=== PATIENT | female | born 1945 | race Caucasian/White ===

== ENCOUNTER → 2023-09-02 08:17 | Outpatient (REF) | payer MEDICARE, OTHER, SELFPAY ==
[2023-09-02 10:15] LABS: % Basophils 1.1 % (0-2); % Eosinophils 5.4 % (0-6); % Immature Granulocytes 0.3 % (0-0.5); % Lymphocytes 43.8 % (20.5-51.1); % Monocytes 11.4 % (1.7-9.3); Absolute Eosinophils 0.2 10^3/uL (0-0.7); Absolute Lymphocytes 1.6 10^3/uL (1.2-3.4); Absolute Monocytes 0.4 10^3/uL (0.1-0.6); Absolute Neutrophils 1.4 10^3/uL (1.4-6.5); Hematocrit 35.8 % (37.0-47.0); Hemoglobin 11.7 g/dL (12.0-16.0); Mean Corp Hgb Conc. 32.7 g/dL (33.0-37.0); Mean Corpuscular Hgb 30.1 pg (27.0-31.0); Mean Platelet Volume 10.7 fL (7.4-10.4); Nucleated Red Blood Cells % 0 %; Platelet Count 152 10^3/uL (130-400); Red Blood Cell Count 3.89 10^6/uL (4.20-5.40); Red Cell Dist. Width 14.9 % (11.5-14.5); White Blood Cell Count 3.7 10^3/uL (4.8-10.8)
[2023-09-02 10:23] LABS: ALT (SGPT) 21 U/L (0-35); AST (SGOT) 27 U/L (14-36); Albumin 3.8 g/dl (3.5-5.0); Alkaline Phosphatase 57 U/L (38-126); Blood Urea Nitrogen 16 mg/dl (7-17); Calcium 9.5 mg/dl (8.4-10.2); Carbon Dioxide 30 mmol/L (22-30); Chloride 104 mmol/L (98-107); Glucose 94 mg/dl (70-99); Potassium 3.9 mmol/L (3.5-5.1); Sodium 139 mmol/L (135-145); Total Bilirubin 0.7 mg/dl (0.2-1.3); Total Protein 6.3 g/dl (6.3-8.2); eGFR > 60.00
[2023-09-02 11:18] LABS: TSH Reflex To Free T4 1.03 uIU/ml (0.47-4.68)
== END ==
LOC: REG 08:17
PROVIDERS: ATTENDING PHYSICIAN Internal Medicine
DX: R93.89 Abnormal findings on diagnostic imaging of other specified body structures (principal); Z85.831 Personal history of malignant neoplasm of soft tissue; Z87.898 Personal history of other specified conditions; R29.898 Other symptoms and signs involving the musculoskeletal system; E03.9 Hypothyroidism, unspecified
CPT/HCPCS: 36415; 80053; 84443; 85025

== ENCOUNTER → 2023-09-12 16:03 | Outpatient (REF) | payer MEDICARE, OTHER, SELFPAY | LOC: RAD 16:03 | PROVIDERS: ATTENDING PHYSICIAN Internal Medicine | DX: R93.89 Abnormal findings on diagnostic imaging of other specified body structures (principal); Z85.831 Personal history of malignant neoplasm of soft tissue; Z87.898 Personal history of other specified conditions; R29.898 Other symptoms and signs involving the musculoskeletal system | CPT/HCPCS: 71250 ==

== ENCOUNTER → 2023-11-08 10:50 | Outpatient (REF) | payer MEDICARE, OTHER, SELFPAY ==
[2023-11-08 13:38] LABS: % Basophils 0.7 % (0-2); % Immature Granulocytes 0.3 % (0-0.5); % Lymphocytes 36.1 % (20.5-51.1); % Monocytes 9.3 % (1.7-9.3); % Neutrophils 50.6 % (42.2-75.2); Absolute Eosinophils 0.2 10^3/uL (0-0.7); Absolute Lymphocytes 2.2 10^3/uL (1.2-3.4); Absolute Monocytes 0.6 10^3/uL (0.1-0.6); Absolute Neutrophils 3.1 10^3/uL (1.4-6.5); Hematocrit 36.3 % (37.0-47.0); Hemoglobin 11.7 g/dL (12.0-16.0); Mean Corp Hgb Conc. 32.2 g/dL (33.0-37.0); Mean Corpuscular Hgb 29.2 pg (27.0-31.0); Mean Corpuscular Volume 90.5 fL (81.0-99.0); Mean Platelet Volume 9.7 fL (7.4-10.4); Nucleated Red Blood Cells % 0 %; Platelet Count 247 10^3/uL (130-400); Red Blood Cell Count 4.01 10^6/uL (4.20-5.40); Red Cell Dist. Width 14.7 % (11.5-14.5)
== END ==
LOC: REG 10:50
PROVIDERS: ATTENDING PHYSICIAN Internal Medicine; FAMILY PHYSICIAN Obstetrics & Gynecology Gynecology
DX: D64.9 Anemia, unspecified (principal); D72.819 Decreased white blood cell count, unspecified
CPT/HCPCS: 36415; 85025

== ENCOUNTER → 2023-12-06 13:00 | Outpatient (REF) | payer MEDICARE, OTHER, SELFPAY | LOC: REG 13:00 | PROVIDERS: ATTENDING PHYSICIAN Internal Medicine | DX: M77.8 Other enthesopathies, not elsewhere classified (principal) | CPT/HCPCS: 73030 ==

== ENCOUNTER → 2024-03-18 13:54 | Outpatient (REF) | payer MEDICARE, OTHER, SELFPAY ==
[2024-03-18 14:28] LABS: % Basophils 0.8 % (0-2); % Eosinophils 3.8 % (0-6); % Immature Granulocytes 0.2 % (0-0.5); % Lymphocytes 28.9 % (20.5-51.1); % Monocytes 13.7 % (1.7-9.3); % Neutrophils 52.6 % (42.2-75.2); Absolute Eosinophils 0.2 10^3/uL (0-0.7); Absolute Lymphocytes 1.5 10^3/uL (1.2-3.4); Absolute Monocytes 0.7 10^3/uL (0.1-0.6); Absolute Neutrophils 2.8 10^3/uL (1.4-6.5); Hematocrit 36.8 % (37.0-47.0); Hemoglobin 12.4 g/dL (12.0-16.0); Mean Corp Hgb Conc. 33.7 g/dL (33.0-37.0); Mean Corpuscular Volume 88.9 fL (81.0-99.0); Mean Platelet Volume 9.7 fL (7.4-10.4); Nucleated Red Blood Cells % 0 %; Platelet Count 206 10^3/uL (130-400); Red Blood Cell Count 4.14 10^6/uL (4.20-5.40); Red Cell Dist. Width 14.2 % (11.5-14.5); White Blood Cell Count 5.3 10^3/uL (4.8-10.8)
== END ==
LOC: REG 13:54
PROVIDERS: ATTENDING PHYSICIAN Internal Medicine
DX: D64.9 Anemia, unspecified (principal)
CPT/HCPCS: 36415; 85025

== ENCOUNTER → 2024-03-25 15:02 | Outpatient (REF) | payer MEDICARE, OTHER, SELFPAY | LOC: PAVMRI 15:02 | PROVIDERS: ATTENDING PHYSICIAN Internal Medicine | DX: M25.511 Pain in right shoulder (principal); G89.29 Other chronic pain | CPT/HCPCS: 73221 ==

== ENCOUNTER → 2024-04-22 16:39 | Outpatient (REF) | payer MEDICARE, OTHER, SELFPAY | LOC: WDC 16:39 | PROVIDERS: ATTENDING PHYSICIAN Obstetrics & Gynecology Gynecology; FAMILY PHYSICIAN Internal Medicine | DX: Z12.31 Encounter for screening mammogram for malignant neoplasm of breast (principal) | CPT/HCPCS: 77063; 77067 ==

== ENCOUNTER → 2024-08-19 14:46 | Outpatient (REF) | payer MEDICARE, OTHER, SELFPAY ==
[2024-08-19 15:51] LABS: % Basophils 0.6 % (0-2); % Eosinophils 0.9 % (0-6); % Immature Granulocytes 0.2 % (0-0.5); % Lymphocytes 30.3 % (20.5-51.1); % Monocytes 10.9 % (1.7-9.3); % Neutrophils 57.1 % (42.2-75.2); Absolute Eosinophils 0.1 10^3/uL (0-0.7); Absolute Monocytes 0.7 10^3/uL (0.1-0.6); Absolute Neutrophils 3.7 10^3/uL (1.4-6.5); Hematocrit 37.1 % (37.0-47.0); Hemoglobin 12.3 g/dL (12.0-16.0); Mean Corp Hgb Conc. 33.2 g/dL (33.0-37.0); Mean Corpuscular Hgb 29.7 pg (27.0-31.0); Mean Corpuscular Volume 89.6 fL (81.0-99.0); Nucleated Red Blood Cells % 0 %; Platelet Count 219 10^3/uL (130-400); Red Blood Cell Count 4.14 10^6/uL (4.20-5.40); White Blood Cell Count 6.4 10^3/uL (4.8-10.8)
[2024-08-19 16:06] LABS: ALT (SGPT) 19 U/L (0-35); AST (SGOT) 25 U/L (14-36); Albumin 4.3 g/dl (3.5-5.0); Alkaline Phosphatase 54 U/L (38-126); Amylase 54 U/L (30-110); Blood Urea Nitrogen 20 mg/dl (7-17); Calcium 9.3 mg/dl (8.4-10.2); Carbon Dioxide 30 mmol/L (22-30); Chloride 103 mmol/L (98-107); Glucose 79 mg/dl (70-99); Lipase 118 U/L (23-300); Potassium 3.9 mmol/L (3.5-5.1); Sodium 139 mmol/L (135-145); Total Bilirubin 0.4 mg/dl (0.2-1.3); eGFR > 60.00
== END ==
LOC: REG 14:46
PROVIDERS: ATTENDING PHYSICIAN Internal Medicine
DX: R11.0 Nausea (principal); R14.2 Eructation; K58.1 Irritable bowel syndrome with constipation
CPT/HCPCS: 36415; 80053; 82150; 83690; 85025

== ENCOUNTER → 2024-12-18 13:55 | Outpatient (REF) | payer MEDICARE, OTHER, SELFPAY ==
[2024-12-18 15:33] LABS: Free T4 1.28 ng/dl (0.78-2.19)
[2024-12-18 15:47] LABS: TSH 0.74 uIU/ml (0.47-4.68)
== END ==
LOC: REG 13:55
PROVIDERS: ATTENDING PHYSICIAN Internal Medicine
DX: E03.9 Hypothyroidism, unspecified (principal); Z85.831 Personal history of malignant neoplasm of soft tissue; M81.0 Age-related osteoporosis without current pathological fracture; E55.9 Vitamin D deficiency, unspecified; M25.561 Pain in right knee; M19.90 Unspecified osteoarthritis, unspecified site; Z00.00 Encounter for general adult medical examination without abnormal findings
CPT/HCPCS: 36415; 84439; 84443

== ENCOUNTER → 2024-12-31 15:46 | Outpatient (REF) | payer MEDICARE, OTHER, SELFPAY ==
[2024-12-31 17:28] LABS: % Basophils 0.2 % (0-2); % Eosinophils 2.4 % (0-6); % Immature Granulocytes 0.2 % (0-0.5); % Lymphocytes 40.4 % (20.5-51.1); % Monocytes 10.6 % (1.7-9.3); % Neutrophils 46.2 % (42.2-75.2); Absolute Eosinophils 0.1 10^3/uL (0-0.7); Absolute Lymphocytes 2.2 10^3/uL (1.2-3.4); Absolute Monocytes 0.6 10^3/uL (0.1-0.6); Absolute Neutrophils 2.5 10^3/uL (1.4-6.5); Hematocrit 37.4 % (37.0-47.0); Hemoglobin 12.4 g/dL (12.0-16.0); Mean Corp Hgb Conc. 33.2 g/dL (33.0-37.0); Mean Corpuscular Hgb 29.8 pg (27.0-31.0); Mean Corpuscular Volume 89.9 fL (81.0-99.0); Mean Platelet Volume 10.2 fL (7.4-10.4); Nucleated Red Blood Cells % 0 %; Platelet Count 167 10^3/uL (130-400); Red Blood Cell Count 4.16 10^6/uL (4.20-5.40); Red Cell Dist. Width 14.1 % (11.5-14.5); White Blood Cell Count 5.5 10^3/uL (4.8-10.8)
[2024-12-31 17:54] LABS: ALT (SGPT) 27 U/L (0-35); AST (SGOT) 27 U/L (14-36); Albumin 4.8 g/dl (3.5-5.0); Alkaline Phosphatase 56 U/L (38-126); Blood Urea Nitrogen 17 mg/dl (7-17); Calcium 9.8 mg/dl (8.4-10.2); Carbon Dioxide 26 mmol/L (22-30); Chloride 103 mmol/L (98-107); Glucose 91 mg/dl (70-99); Sodium 139 mmol/L (135-145); Total Bilirubin 0.5 mg/dl (0.2-1.3); Total Protein 7.5 g/dl (6.3-8.2); eGFR > 60.00
[2024-12-31 17:59] LABS: Erythrocyte Sed Rate 56 mm/hour (0-20)
[2025-01-02 16:08] LABS: Lyme Antibody Screen, EIA Negative (Negative)
[2025-01-03 00:08] LABS: ANA, IgG Reflex to HEp-2 None Detected (None Detected)
== END ==
LOC: REG 15:46
PROVIDERS: ATTENDING PHYSICIAN Orthopaedic Surgery Hand Surgery; FAMILY PHYSICIAN Internal Medicine
DX: M66.241 Spontaneous rupture of extensor tendons, right hand (principal); M25.50 Pain in unspecified joint
CPT/HCPCS: 36415; 80053; 85025; 85652; 86038; 86140; 86225; 86235; 86430; 86618

== ENCOUNTER 2025-02-07 15:54 | Inpatient (IN) | payer MEDICARE, OTHER, SELFPAY ==
[2025-02-07 11:53] VITALS: BP 95/58
[2025-02-07] MEDS: ZOFRAN 4 MG IV (13:06)
[2025-02-07] MEDS: TORADOL 15 MG IV (13:06)
[2025-02-07] MEDS: NSS 1000 IV ×2 (13:07→20:34)
--- NOTE | 2025-02-07 13:25 | ED.GENMED ---
History of Present Illness
General
Chief Complaint: Weakness
Source: patient
Exam Limitations: none
Time Seen by Provider: 02/07/25 12:20
Nursing documentation reviewed up to this point in time: agreed with
History of Present Illness
History of Present Illness:
79-year-old female with a past medical history of hypothyroidism, distant history of a thigh sarcoma in remission who presents to the emergency room with her daughter for evaluation of multiple complaints in the setting of positive flu test.
Patient reports that she started feeling unwell on Monday and her symptoms have been persistent since that time. She says she has had severe fatigue, poor appetite, myalgias and nausea. She has developed a mild cough. Although she has had nausea
she has not had any vomiting. She has not had any abdominal pain. No chest pain or shortness of breath. She denies any headache or neck pain. She has not had a fever. She had a flu test yesterday that was positive for influenza B. She
discussed with her primary doctor (Dr. Hobson) and was prescribed Tamiflu. She took a dose last night as well as this morning however she feels nausea is a bit worse and today was having some loose stools which prompted her to come to the ER for
evaluation.
Review of Systems
Review of Systems
All Other Systems: ROS reviewed and negative except as documented in HPI and ROS
Constitutional: Reports fatigue; Denies fever or chills
EENT: Denies sore throat or runny nose
Respiratory: Reports cough; Denies trouble breathing
Cardiac: Denies chest pain
ABD/GI: Reports nausea and diarrhea; Denies abdominal pain or vomiting
: Denies flank pain
Musculoskeletal: Reports muscle pain; Denies neck pain or back pain
Neurological: Denies headache
Phy Exam
Physical Exam
Physical Exam:
General: Awake, alert, oriented x3; no acute distress
Head: Normocephalic, atraumatic
Eyes: Conjunctiva normal, sclera anicteric
Throat: Airway intact, slightly dry mucous membranes
Neck: Trachea midline, supple without meningismus
Lungs: Clear to auscultation bilaterally, no wheezing, rales, rhonchi
Heart: Mild tachycardia with regular rhythm, no murmurs, gallops, or rubs
Abd: Soft, non distended, nontender
Neuro: No gross deficits
Skin: no rash
Extremities: Warm and well-perfused
Scores
Heart Failure Risk
Heart Failure Risk Score: Not Applicable
Heart Score for Chest Pain Patients
STEMI patient?: Not applicable
Withdrawal Assessment of Alcohol
Withdrawal Assessment Completed?: Not applicable
Course
Orders/Labs/Results
Orders:
Orders
02/07/25 12:47
CR Chest - 2 Views Urgent
Comment:
Reason For Exam: weakness, flu+
02/07/25 12:59
0.9% Sodium Chloride 1000 ml [Nss] 1,000 ml IV BOLUS
Ketorolac [Toradol] 15 mg IV NOW STA
Ondansetron Injectable [Zofran] 4 mg IV NOW STA
02/07/25 13:06
CPK [Creatine Phosphokinase] Urgent
Complete Blood Count/With Diff Urgent
Comprehensive Metabolic Panel Urgent
02/07/25 13:59
COVID-19 Antigen Urgent
Source: Nasal Swab
Osmolality, Random Urine Urgent
Urinalysis Reflex To Culture Urgent
Urine Sodium Urgent
Influenza A+B Rapid Molecular Urgent
MYRNA Source: Nasal Swab
Specimen Description:
Abnormal Lab Results
02/07/25
13:06
WBC 2.4 L* 10^3/uL
(4.8-10.8)
RBC 4.06 L 10^6/uL
(4.20-5.40)
Hct 34.1 L %
(37.0-47.0)
Plt Count 33 L 10^3/uL
(130-400)
MPV 11.3 H fL
(7.4-10.4)
Absolute Lymphs (auto) 0.3 L 10^3/uL
(1.2-3.4)
Neutrophils % 82.2 H %
(42.2-75.2)
Lymphocytes % 10.8 L %
(20.5-51.1)
Sodium 124 L mmol/L
(135-145)
Carbon Dioxide 19 L mmol/L
(22-30)
BUN 18 H mg/dl
(7-17)
Glucose 121 H mg/dl
(70-99)
Calcium 8.3 L mg/dl
(8.4-10.2)
AST 49 H U/L
(14-36)
Creatine Kinase 264 H U/L
(30-135)
02/07/25 13:06
02/07/25 13:06
Vital Signs
Initial and Last Documented VS:
Initial Vital Signs
Temp Pulse Resp BP Pulse Ox
37.7 C 108 16 95/58 95
02/07/25 11:53 02/07/25 11:53 02/07/25 11:53 02/07/25 11:53 02/07/25 11:53
Last Documented Vital Signs
Temp Pulse Resp BP Pulse Ox
37.7 C 108 16 95/58 95
02/07/25 11:53 02/07/25 11:53 02/07/25 11:53 02/07/25 11:53 02/07/25 13:31
MDM/Problems Addressed
Differential Diagnosis Includes:
Influenza symptoms, medication side effect (Tamiflu), pneumonia, rhabdomyolysis, electrolyte derangement
MDM/Problems Addressed:
79-year-old female presents for evaluation of multiple complaints in the setting of positive flu test. Patient has had fatigue, poor appetite, myalgias, nausea; today had some loose stools and worsening nausea after starting Tamiflu last night.
She is mildly tachycardic, soft blood pressure. She does appear to be mildly dehydrated. Physical exam is as above. Will plan to place an IV and send labs including a CBC and a CMP, CPK. Will check chest x-ray to rule out pneumonia although
lower suspicion with only mild cough and with normal respiratory rate, normal pulse ox, clear lungs. Will provide fluids, antiemetic, Toradol. I had a long discussion with the patient�I think at this point with symptoms since Monday she is
outside the window of benefit for Tamiflu having started last night and I advised her to discontinue this as I think the side effects outweigh any benefit she might obtain from the medicine.
Labs reviewed�patient has marked leukopenia and thrombocytopenia�no neutropenia, no anemia. CMP shows hyponatremia to 124 suspect likely hypovolemic but added urine studies. She has nongap metabolic acidosis likely from GI losses. Marginal
elevation of the CPK. Chest x-ray shows no pneumonia on my independent review. Will plan to admit for continued management of acute hyponatremia and pancytopenia in the setting of influenza infection. Case discussed with hospitalist.
*Radiology
Radiology exam reviewed: preliminary read by ED provider
*Pulse Oximetry
SaO2: 95
Patient hypoxic: no (95%)
*Critical Care Note
Total Time (30-74mins, 75-104mins- exclusive of procedures): Not Applicable
Data Reviewed
Review of Other/Old Records Reveals: Labs and Records
Source: patient, records and family
ED Attending Note
-
Portions of this chart may have been created with voice recognition software.� Occasional wrong word or��sound alike� substitutions may have occurred due to the inherent limitations of voice recognition software.
Discharge Plan
Departure
Patient Disposition: Admit
Date of Disposition: 02/07/25
Time of Disposition: 14:06
Admit to doctor: Blessing
Presentation/result/management discussed w/ accepting MD/DO: Hospitalist
Discharge Problem:
Acute hyponatremia, Pancytopenia, Influenza
Referrals:
Denver Hobson MD [Family Provider, Internal Medicine]
Interventions
Interventions:
*Risk Screen - Suicide Last Done: 02/07/25 11:53
*General Assessment Last Done: 02/07/25 11:53
*Neglect/Abuse Screening Last Done: 02/07/25 11:53
ED- Cardiac Assessment Last Done: 02/07/25 12:25
ED- Neurological Assessment Last Done: 02/07/25 12:25
ED- Pulmonary Assessment Last Done: 02/07/25 12:25
Discharge Date and Time
Print Language: HEBREW
[2025-02-07 13:26] LABS: Hematocrit 34.1 % (37.0-47.0); Hemoglobin 12.2 g/dL (12.0-16.0); Mean Corp Hgb Conc. 35.8 g/dL (33.0-37.0); Mean Corpuscular Volume 84.0 fL (81.0-99.0); Red Cell Dist. Width 13.7 % (11.5-14.5)
[2025-02-07 13:50] LABS: ALT (SGPT) 27 U/L (0-35); AST (SGOT) 49 U/L (14-36); Albumin 3.8 g/dl (3.5-5.0); Alkaline Phosphatase 41 U/L (38-126); Blood Urea Nitrogen 18 mg/dl (7-17); Calcium 8.3 mg/dl (8.4-10.2); Carbon Dioxide 19 mmol/L (22-30); Chloride 99 mmol/L (98-107); Glucose 121 mg/dl (70-99); Potassium 4.2 mmol/L (3.5-5.1); Sodium 124 mmol/L (135-145); Total Protein 6.5 g/dl (6.3-8.2); eGFR > 60.00
[2025-02-07 13:51] LABS: Nucleated Red Blood Cells % 0 %; Platelet Count 33 10^3/uL (130-400)
--- NOTE | 2025-02-07 14:28 | HPS.HSE ---
Family Physician
-
Family Physician: Denver Hobson
Chief Complaint
-
Nausea and muscle aches for a few days duration, tested positive for influenza by home testing kit
History of Present Illness
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 Patient reported that her symptoms started 4 days ago. She noticed chills and aches but no respiratory or cold-like symptoms.
She tested herself for influenza came back positive. She called her primary was put on Tamiflu but she took only 2 doses. She continued to have nausea and lack of appetite. Patient is unable to recall which started first that makes her the
nausea, she reported they were simultaneous events. In the emergency room, she had low sodium around 124. No history of hyponatremia in the past. No nausea or vomiting but she had diarrhea after taking Tamiflu. She also was noticed to have
leukopenia with thrombocytopenia. No bleeding events or skin rash. No history of thrombocytopenia in the past.
Medical History
Past Medical History
Past Medical History: Reports Other (Right thigh sarcoma status postchemotherapy resection, remission for years. History of hypothyroidism)
Past Surgical History: Reports Other (No recent major surgery)
Social History
Tobacco: Former Smoker
Alcohol: Occasional
Drug: None
Employment: Retired
Family History
Family History: Not pertinent
Allergies / Home Medications
Allergies reflects when Allergies were last updated in [facility].
Home Medications with original date entered in [facility]
Allergy/Medication List:
Allergies
Allergy/AdvReac Type Severity Reaction Status Date / Time
No Known Allergies Allergy Verified 02/07/25 11:53
Home Medications
levothyroxine 50 mcg tablet (Synthroid) 50 mcg PO DAILY 02/07/25
oseltamivir 75 mg capsule (Tamiflu) 75 mg PO BID 02/07/25
Review of Systems
-
History Source: Patient
A 12 point ROS was completed and negative except as noted: Yes
Constitutional: Reports Fatigue and Chills; Denies Fever
EENT: Denies Sore Throat, Mouth Swelling or Runny Nose
Respiratory: Denies Cough or Trouble Breathing
Cardiac: Denies Chest Pain or Palpitations
Abdomen/GI: Reports Nausea and Anorexia; Denies Abdominal Pain
: Denies Dysuria or Bleeding
Musculoskeletal: Reports Muscle Pain; Denies Joint Pain
Neurological: Denies Numbness
Endocrine: Denies Temp Intolerance
Hematologic/Lymphatic: Denies Bruising
Psych: Denies Panic Disorder
Physical Exam
Vital Signs
Vital Signs
Temp Pulse Resp BP Pulse Ox
99.9 F 108 16 95/58 95
02/07/25 11:53 02/07/25 11:53 02/07/25 11:53 02/07/25 11:53 02/07/25 13:31
Physical Exam
General: No Apparent Distress and Comfortable
HEENT: Moist mucous membranes and Atraumatic
Respiratory: Clear
Cardiac: S1/S2 and Regular Rhythm
GI: Soft, Non Tender and Non Distended
Genito-urinary: No Merritt
Musculoskeletal: No Clubbing, No Cyanosis and No Edema
Skin: No Jaundice
Neuro: AO x 3 and Nonfocal/grossly intact
Psych: Calm and Intact Judgment/Insight
Laboratory Results
-
02/07/25 13:06
02/07/25 13:06
Laboratory Results
Total Bilirubin 0.6 mg/dl (0.2-1.3) 02/07/25 13:06
AST 49 U/L (14-36) H 02/07/25 13:06
ALT 27 U/L (0-35) 02/07/25 13:06
Alkaline Phosphatase 41 U/L (38-126) 02/07/25 13:06
Impression/Plan
-
79 years old female presented with nonspecific symptoms of malaise, aches, anorexia and nausea was found to have hyponatremia and thrombocytopenia
# Hyponatremia
Admit the patient to the hospital
Will start the patient on normal saline
This could be hypovolemic hyponatremia or others
Chest x-ray, no acute findings
Check serum and urine osmolality, urine sodium, uric acid
She is not on diuretic treatment. No history of vomiting by history of poor oral intake and diarrhea.
Mentation is normal and fully oriented, denies headache or confusion
follow-up with nephrology recommendation.
# Nausea, could be induced by recent viral illness or hyponatremia
We will give Zofran as needed
# Mild elevation in creatinine kinase, likely from recent viral illness
Nontraumatic mild rhabdomyolysis
Continue with IV fluid
Tylenol for muscle pain
# Thrombocytopenia with leukopenia
Recent history of influenza. She tested negative for influenza and COVID in the hospital. No respiratory symptoms. Chest x-ray no infiltrate. No hypoxia
Could be acute induced by viral illness. No ecchymosis or bruising. No bleeding. She has not started any new medications.
Will monitor platelet count, check blood smear
Will monitor to rule out ITP.
Will do blood culture
Follow-up with hematology recommended
# Hypothyroidism, check TSH
# History of positive influenza screen at home
Patient does not have respiratory symptoms.
Negative influenza and COVID.
Will hold off on Tamiflu therapy
Total time spent to see the patient, examine the patient, review data and lab result, discuss treatment plan with patient, ER doctor, nursing staff around 75 minutes
[2025-02-07 14:39] LABS: COVID-19 Antigen Negative (Negative)
[2025-02-07 14:48] VITALS: BP 102/70
--- NOTE | 2025-02-07 15:49 | CM ---
CM reviewed chart and met with pt bedside in ED. Lives alone, multistory home, [address] through garage first floor half BA, second floor BR/Full BA. Independent in ADLs, personal care and ambulation at baseline. No DME.
No hx VN/SNF.
PCP: Denver Hobson
Pharmacy: [facility]
CM will continue to follow for discharge planing needs.
--- NOTE | 2025-02-07 17:14 | W.CON.NEPH ---
Consultation
-
Date/Time Consultation Requested: 02/07/25 1524
Date/Time Consultation Performed: 02/07/25 1745
Requesting Provider: abby Lemus
Performing Provider: Tessa Hidalgo
Reason for Consultation: Hyponatremia
Medical History
-
Chief Complaint: nausea, Flu+ve at home
History of Present Illness:
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 She noticed chills
and aches but no respiratory or cold-like symptoms. She tested herself for influenza came back positive. PCP gave her Tamiflu but she took only 2 doses. She could not continue to take with nausea and lack of appetite. She has XIE which improved
now. Has noted balance issues when walking at home. In the emergency room, she had low sodium around 124, BP are soft and had 1lit of NS in ER. No history of hyponatremia in the past. No nausea or vomiting but she had diarrhea after taking
Tamiflu. She also was noticed to have leukopenia 2.4 with thrombocytopenia 33 . No bleeding events or skin rash. No history of thrombocytopenia in the past. She completed 1lit of NS. Reports her BP chronically on low end. No dizziness.
Past Medical History
Right thigh sarcoma status postchemotherapy resection, remission for years. History of hypothyroidism
Social History
Tobacco: Former Smoker
Alcohol: Occasional
Drug: None
Employment: Retired (nurse)
Family History
Family History: Not Pertinent
Allergies / Home Medications
Allergy/AdvReac Type Severity Reaction Status Date / Time
No Known Allergies Allergy Verified 02/07/25 11:53
�Medication �Instructions �Recorded �Confirmed �Type
levothyroxine 50 mcg tablet 50 mcg PO DAILY 02/07/25 02/07/25 History
(Synthroid)
oseltamivir 75 mg capsule (Tamiflu) 75 mg PO BID 02/07/25 02/07/25 History
Review of Systems
-
All other systems: Negative unless noted
Physical Exam
Vital Signs
Vital Signs
Temp Pulse Resp BP Pulse Ox
99.9 F 98 20 102/70 99
02/07/25 11:53 02/07/25 14:48 02/07/25 14:48 02/07/25 14:48 02/07/25 14:48
Lab Results
WBC 2.4 10^3/uL (4.8-10.8) L* 02/07/25 13:06
RBC 4.06 10^6/uL (4.20-5.40) L 02/07/25 13:06
Hgb 12.2 g/dL (12.0-16.0) 02/07/25 13:06
Hct 34.1 % (37.0-47.0) L 02/07/25 13:06
Plt Count 33 10^3/uL (130-400) L 02/07/25 13:06
Sodium 124 mmol/L (135-145) L 02/07/25 13:06
Potassium 4.2 mmol/L (3.5-5.1) 02/07/25 13:06
Chloride 99 mmol/L (98-107) 02/07/25 13:06
Carbon Dioxide 19 mmol/L (22-30) L 02/07/25 13:06
BUN 18 mg/dl (7-17) H 02/07/25 13:06
Creatinine 0.8 mg/dL (0.6-1.0) 02/07/25 13:06
eGFR > 60.00 02/07/25 13:06
Glucose 121 mg/dl (70-99) H 02/07/25 13:06
Calcium 8.3 mg/dl (8.4-10.2) L 02/07/25 13:06
Albumin 3.8 g/dl (3.5-5.0) 02/07/25 13:06
Physical Exam
General: Awake, Alert, Oriented, AOx3, No Distress and Nontoxic
HEENT: Anicteric, Conjunctivae Clear, Ear/Nose Intact, Dentition Intact and Facial Symmetry
Respiratory: Clear, Normal Excursion and Nonlabored Respirations
Cardiac: S1/S2 and Regular Rate/Rhythm
Breast: Deferred by me
Abdomen: Soft, Nontender and Nondistended
Musculoskeletal: No Cyanosis and No Edema
Skin: No Rash
Neuro: Nonfocal/Grossly Intact
Psych: Mood/afflect pleasant, Insight/judgement good and Appropriate
Data Reviewed
-
Radiology: Report Reviewed by me and Discussed with Patient
Labs: Labs Reviewed by me and Discussed with Patient
Assessment/Plan
-
IMP:
Hyponatremia
Nausea
Mildly elevated CK
Thrombocytopenia with leukopenia
Recent history of influenza tested negative for influenza and COVID in the hospital
Hypothyroidism
Hypocalcemia
Plan:
A/w gen symp of nausea, malaise, anorexia
possible symptomatic hyponatremia-could be hypovolemia
check U osmo, U na
now that she got 1lit of NS-recheck labs
ok for isotonic fluids if sodium worsens change to HTS
check TSH and cortisol
fluid restrict 48 ounces/day
Bp chronically soft
hypocalcemia-check vit D evel, I araceli -start po araceli
d/w pt
[2025-02-07 18:42] LABS: Blood Urea Nitrogen 19 mg/dl (7-17); Calcium 7.5 mg/dl (8.4-10.2); Carbon Dioxide 20 mmol/L (22-30); Chloride 102 mmol/L (98-107); Glucose 99 mg/dl (70-99); Potassium 3.9 mmol/L (3.5-5.1); Sodium 125 mmol/L (135-145); eGFR > 60.00
--- NOTE | 2025-02-07 20:00 | PTCARENOTE ---
patient arrived from ED, via stretcher. Out of stretcher to bed with stand by assistance, no devices. BP soft yet, according to patient, she runs on the softer side. Afebrile on arrival. Patient denies pain. Patient complaining of poor appetite.
Tremulous on assessment. Patient denies dizziness. Urine obtained. Blood cultures obtained. Skin check completed. Patient's skin is clean, dry and intact. Patient oriented to room. Bed in lowest position. Call juarez and personal belongings within
reach.
[2025-02-07 20:25] VITALS: BP 94/61; BMI 20.9
[2025-02-07 20:34] LABS: Hepatitis C Antibody Negative (Negative)
[2025-02-07] MEDS: OSCAL CAL 500 500 MG PO (20:34)
[2025-02-07 22:29] LABS: Urine Character Slightly Cloudy (Clear)
[2025-02-07 23:30] VITALS: BP 98/56
[2025-02-07] MEDS: TYLENOL 1000 MG PO (23:32)
[2025-02-08] VITALS (7 sets, daily range): BP systolic 78–99; BP diastolic 44–60
--- NOTE | 2025-02-08 00:28 | PTCARENOTE ---
Patient febrile with temp of 102.8 at 2305. PRN tylenol administered and effective AEB afebrile temp of 99 at 0015
[2025-02-08 06:55] LABS: Hematocrit 31.6 % (37.0-47.0); Hemoglobin 11.0 g/dL (12.0-16.0); Mean Corp Hgb Conc. 34.8 g/dL (33.0-37.0); Mean Corpuscular Volume 85.4 fL (81.0-99.0); Platelet Count 31 10^3/uL (130-400); Red Cell Dist. Width 13.8 % (11.5-14.5)
[2025-02-08 07:07] LABS: Blood Urea Nitrogen 18 mg/dl (7-17); Calcium 8.3 mg/dl (8.4-10.2); Carbon Dioxide 21 mmol/L (22-30); Chloride 103 mmol/L (98-107); Estimated Creatinine Clearance 52 ml/min; Glucose 92 mg/dl (70-99); Potassium 4.0 mmol/L (3.5-5.1); Sodium 128 mmol/L (135-145); eGFR > 60.00
[2025-02-08 07:30] LABS: Vitamin D, 25-OH*** 42.8 ng/mL (30-80)
[2025-02-08 07:33] LABS: Cortisol, Random 20.8 ug/dl; TSH 1.54 uIU/ml (0.47-4.68)
--- NOTE | 2025-02-08 08:02 | W.PN.HOSP.TC ---
Addendum entered and electronically signed by Angelique Thompson MD 02/08/25 17:42:
Addendum
Patient is having low-grade temperature with hypotension. Discussed with daughter, Odalis who is a physician. Patient baseline blood pressure can be low at times around 90. Will give bolus of IV fluid and 1 dose of midodrine. Added intravenous
Rocephin since we obtained cultures and blood testing. Will add heart monitor since BP is low.
Will update Dr. Mcgill.
End
Original Note:
Today's Communication/Plan
-
.
Assessment / Plan
Assessment / Plan
Physical Exam
General: No Apparent Distress and Comfortable
HEENT: Moist mucous membranes and Atraumatic
Respiratory: Clear
Cardiac: S1/S2 and Regular Rhythm
GI: Soft, Non Tender and Non Distended
Genito-urinary: No Merritt
Musculoskeletal: No Clubbing, No Cyanosis and No Edema
Skin: No Jaundice, no bruising
Neuro: AO x 3 and Nonfocal/grossly intact
Psych: Calm and Intact Judgment/Insight
79 years old female presented with nonspecific symptoms of malaise, aches, anorexia and nausea was found to have hyponatremia and thrombocytopenia
# Hyponatremia
Improving
Low serum osmolality, normal urine osmolality, low urine sodium
Sodium improving
c/w fluid restrictions, low infusion NS
Appreciate nephrology recommendation.
# Nausea, could be induced by recent viral illness or hyponatremia
No abdominal pain or tenderness
c/w Zofran as needed
# Mild elevation in creatinine kinase, likely from recent viral illness
Nontraumatic mild rhabdomyolysis
Continue with IV fluid
Tylenol for muscle pain
# Thrombocytopenia, mild anemia with leukopenia
Pancytopenia, could be due to infection.
Recent history of influenza. She tested negative for influenza and COVID in the hospital. No respiratory symptoms. Chest x-ray no infiltrate. No hypoxia
No ecchymosis or bruising. No bleeding. She has not started any new medications.
Will monitor platelet count, check blood smear
Will monitor to rule out ITP.
f/w blood culture
Appreciate hematology recommendations.
# Hypothyroidism,
Normal TSH
# History of positive influenza screen at home
fevers
f/w blood culture
Patient does not have respiratory symptoms.
Negative influenza and COVID.
Will hold off on Tamiflu therapy
Infectious panel is sent
Appreciate ID help
Total time spent to see the patient, examine the patient, review data and lab result, discuss treatment plan with patient, nursing staff around 55 minutes
Anticipated Discharge: > 48 hours
Subjective/Interval History
-
Date of Service: February 08, 2025
No chest pain
No abdominal pain
She slept well
Objective Data
-
Labs:
Laboratory Results
02/08/25
06:26
WBC 1.9 L*
Hgb 11.0 L
Hct 31.6 L
Plt Count 31 L
Sodium 128 L
Potassium 4.0
Chloride 103
Carbon Dioxide 21 L
BUN 18 H
Creatinine 0.7
Glucose 92
Calcium 8.3 L
Vital Signs:
Vital Signs
Temp Pulse Resp BP Pulse Ox
99 F 81 14 98/56 94
02/08/25 00:46 02/07/25 23:30 02/07/25 23:30 02/07/25 23:30 02/07/25 23:30
I&O
02/07/25 02/08/25 02/09/25
06:59 06:59 06:59
Intake Total 532 / 532 100 / 100
Output Total 400 / 400
Balance 132 / 132 100 / 100
--- NOTE | 2025-02-08 08:18 | CON.ID ---
Consultation
-
Date/Time Consultation Requested: February 08, 2025 0652
Date/Time Consultation Performed: February 08, 2025 0820
Requesting Provider: Dr. Sonia Thompson
Performing Provider: Dr. Luly Mcgill
Reason for Consultation: Fever
Chief Complaint / Past History
Chief Complaint
Malaise and myalgia
History of Present Illness
79-year-old female with remote history of right thigh sarcoma currently on remission who presented to the hospital February 07 due to myalgias chills and fever. Patient states she started feeling unwell approximately 5 to 6 days ago with bodyaches
chills, subjective fever, and joint pains. Positive headache, poor appetite and profound weakness. She self tested herself with COVID/influenza combination kit at home in the flu B was positive. Her PCP called in Tamiflu for which she took 2
doses but developed nausea. In the ER temperature 102.8. White count 2.4. Platelets 33 decreased from 167 on December 31, 2024. COVID-negative. Influenza A/B negative. ED ordered Lyme screen pending, monoscreen negative. Babesia smear negative.
She denies ill contacts. Last travel was to [facility] about a month ago. Has mild cough. No abdominal pain or diarrhea. No urine symptoms. No flank pain. No rash. She has chronic knee pain. No known tick exposure that she is aware of.
She lives in [place]. She does not take care of the yard/lawn. She has 2 cats who go outdoors.
Past History
Additional Past Medical History:
Hx Right thigh sarcoma status postchemotherapy resection
Allergy History:
No Known Allergies Allergy (Verified 02/07/25 11:53)
Medications Reviewed: Yes
Current Antibiotics:
none
Social History
Tobacco: Former Smoker
Alcohol: Occasional
Drug: None
Employment: Retired (nurse)
Family History
Family History: Not Pertinent
Review of Systems
Review of Systems
General: Fever, Chills and Change in Appetite
HEENT: Headache; Negative Sinus Problems or Pharyngitis
Cardiovascular: Negative Chest Pain
Respiratory: Cough; Negative Dyspnea or Sputum Production
Gasteroenterology: Nausea; Negative Vomiting or Diarrhea
Genital / Urological: Negative Dysuria or Flank Pain
Endocrine: Weakness and Fatigue
Musculoskeletal: Arthralgias and Myalgias
Neurological: Negative Dizziness
All systems: All other systems were reviewed and were negative
Vital Signs
Temp Pulse Resp BP Pulse Ox
99 F 81 14 98/56 94
02/08/25 00:46 02/07/25 23:30 02/07/25 23:30 02/07/25 23:30 02/07/25 23:30
Selected Entries
02/07/25
23:30
Temp 102.8 F H
Physical Exam
Physical Exam
Constitutional: No Acute Distress
Head: Other (No frontal or max or sinus tenderness)
Eyes: No Conjunctival Hemorrhage and Sclera Anicteric
Cardiovascular: Regular Rate and S1/S2
Pulmonary: Clear
Gastrointestinal: Soft, Non Tender, Non Distended and Normal Bowel Sounds
Genito-Urinary: Negative CVA Tenderness
Extremities: Negative Edema
Musculoskeletal: Negative Joint Swelling (knees), Joint Effusion (knees) or Spinal Tenderness
Neurological: AO x 3
Lab / Diagnostic Study Results
02/08/25 06:26
02/08/25 06:26
Abs Immat Gran (auto) 0.0 10^3/uL (0-0.05) 02/07/25 13:06
Absolute Neuts (auto) 2.0 10^3/uL (1.4-6.5) 02/07/25 13:06
Absolute Lymphs (auto) 0.3 10^3/uL (1.2-3.4) L 02/07/25 13:06
Absolute Monos (auto) 0.2 10^3/uL (0.1-0.6) 02/07/25 13:06
Absolute Basos (auto) 0.0 10^3/uL (0-0.2) 02/07/25 13:06
Immature Gran % 0.4 % (0-0.5) 02/07/25 13:06
Neutrophils % 82.2 % (42.2-75.2) H 02/07/25 13:06
Lymphocytes % 10.8 % (20.5-51.1) L 02/07/25 13:06
Monocytes % 6.2 % (1.7-9.3) 02/07/25 13:06
Eosinophils % 0.0 % (0-6) 02/07/25 13:06
Basophils % 0.4 % (0-2) 02/07/25 13:06
Ur Squamous Epith Cells 6-10 /LPF (Few) 02/07/25 22:16
Microbiology Results
Micro:
02/07/25 18:19 Blood Parasites Smear - Final
Blood/Venous
02/07/25 22:16 Urine Culture - Pending
Urine
02/07/25 22:09 Blood Culture - Pending
Blood/Venous
02/07/25 14:04 Influenza Types A & B (DC) - Final
Nasal Swab Negative for Influenza A & B, NAAT
Negative results must be combined with clinical observations
and patient history.
Nucleic Acid Amplification test (NAAT)performed on the
[employer] platform.
02/07/25 CXR: Findings suggesting small bilateral pleural effusions. Lungs appear otherwise clear.
Assessment / Plan
# Fever
# Acute leukopenia, thrombocytopenia
# Suspect tick-borne illness
- COVID/Flu neg
- blood cx's x2 pending
- CXR - no pneumonia
- Babesia smear x 2 neg.
- Lyme pending
- Ordered anaplasma/ehrlichia PCR
- Start empiric doxycycline 100mg po bid.
- Trend temps/CBC
Care Review
Plan reviewed with: Physician (Dr. Thompson)
[2025-02-08 08:53] LABS: ALT (SGPT) 33 U/L (0-35); AST (SGOT) 59 U/L (14-36); Albumin 3.2 g/dl (3.5-5.0); Alkaline Phosphatase 36 U/L (38-126); Total Protein 5.7 g/dl (6.3-8.2)
[2025-02-08] MEDS: OSCAL CAL 500 500 MG PO (09:00)
[2025-02-08] MEDS: SYNTHROID 50 MCG PO (09:00)
[2025-02-08 09:01] LABS: Nucleated Red Blood Cells % 0 %
[2025-02-08 09:19] LABS: Absolute Neutrophils -Man Diff 1.3 10^3/uL (1.4-6.5)
[2025-02-08 09:22] LABS: Hypochromasia 1+; Normal RBC Morphology No; Platelets Checked Yes; Total Cells Counted 100
--- NOTE | 2025-02-08 09:35 | W.PN.NEPH.PH ---
Today's Communication / Plan
-
cotn NS
Assessment/Plan
-
IMP:
Hyponatremia
Nausea
Mildly elevated CK
Thrombocytopenia with leukopenia
Recent history of influenza tested negative for influenza and COVID in the hospital
Hypothyroidism
Hypocalcemia
Plan:
A/w gen symp of nausea, malaise, anorexia
possible symptomatic hyponatremia-could be hypovolemia
sodium improving to 128 with NS-cont same today
high U osmo at 514 and U na low <5
normal TSH and cortisol
fluid restrict 48 ounces/day
Bp chronically soft
hypocalcemia-corrected araceli is normal, normal vit D. I araceli normal too. hold po araceli
leucopenia and thrombocytopenia continues-heme consulted
pt reports having large liver cyst which is palpable on exam
ID consulted too
d/w pt
-
-
Date of Service: February 08, 2025
CC / HPI / ROS
-
Chief Complaint:
hyponatremia
History of Present Illness:
sodium improving to 128
Bp soft
fever last night at 102
leucopenia persists 1.9, plt low 31k
Review of Systems:
feels tired and no energy
no nausea this am
no cp or sob
Labs
-
Labs:
WBC 1.9 10^3/uL (4.8-10.8) L* 02/08/25 06:26
RBC 3.70 10^6/uL (4.20-5.40) L 02/08/25 06:26
Hgb 11.0 g/dL (12.0-16.0) L 02/08/25 06:26
Hct 31.6 % (37.0-47.0) L 02/08/25 06:26
Plt Count 31 10^3/uL (130-400) L 02/08/25 06:26
Sodium 128 mmol/L (135-145) L 02/08/25 06:26
Potassium 4.0 mmol/L (3.5-5.1) 02/08/25 06:26
Chloride 103 mmol/L (98-107) 02/08/25 06:26
Carbon Dioxide 21 mmol/L (22-30) L 02/08/25 06:26
BUN 18 mg/dl (7-17) H 02/08/25 06:26
Creatinine 0.7 mg/dL (0.6-1.0) 02/08/25 06:26
eGFR > 60.00 02/08/25 06:26
Glucose 92 mg/dl (70-99) 02/08/25 06:26
Calcium 8.3 mg/dl (8.4-10.2) L 02/08/25 06:26
Albumin Cancelled 02/08/25 08:04
Physical Exam
-
Vital Signs:
Vital Signs
Temp Pulse Resp BP Pulse Ox
98.0 F 70 18 94/50 95
02/08/25 07:32 02/08/25 08:59 02/08/25 07:32 02/08/25 08:59 02/08/25 07:32
Cardiovascular:: Regular rate and rhythm
Respiratory:: Bilateral: CTA
Lung Excursion:: Normal
Abdomen:: Nontender and Soft (palpable liver RUQ)
Extremity Edema:: None: Bilateral:
Merritt Catheter: No
[2025-02-08] MEDS: VIBRAMYCIN 100 MG PO ×2 (10:50→20:09)
--- NOTE | 2025-02-08 12:37 | W.PN.UPDATE ---
Update Note
Progress Note Update
Pt seen and examined, chart reviewed, full consult to follow.
Normal blood counts in early December.
Acute onset of systemic symptoms about a week ago, now with leukopenia and thrombocytopenia.
- strongly suspect infectious etiology including tick-borne
- U/S spleen now, exclude splenomegaly
Full consult to follow
[2025-02-08] MEDS: NSS 1000 IV (13:24)
[2025-02-08] MEDS: NSS 500 IV ×2 (15:53→21:22)
--- NOTE | 2025-02-08 16:52 | PTCARENOTE ---
Pts bp 78/50. Denies symptoms of dizziness or blurred vision. 500ml nss fluid bolus and 5mg of midodrine given. Rechecked bp 99/60. Hospitalist aware. Plan of care ongoing.
[2025-02-08] MEDS: STERILE WATER FOR INJECTION 20 ML IV (18:33)
[2025-02-08] MEDS: ROCEPHIN 2000 MG IV (18:33)
--- NOTE | 2025-02-08 21:04 | W.PN.UPDATE ---
Update Note
Progress Note Update
Her BP is soft, 78/44 manually, HR 55. Patient asymptomatic. Will order IV bolus NSS and Midodrine 5mg PO now.
--- NOTE | 2025-02-08 21:30 | PTCARENOTE ---
Pt's BP at 19:28 was 86/60, HR 62. Manual BP at 20:44 was 78/44, HR 55. Pt currently denies lightheadedness or dizziness and it resting comfortably in bed. Contacted House Provider, Bahman Alonso, who ordered a 500mL NS bolus and 5mg PO midodrine.
Midodrine given, bolus infusing, will recheck BP.
--- NOTE | 2025-02-08 21:32 | CON.ONC ---
Consultation
-
Date Consultation Requested: 02/07/25
Date Consultation Performed: 02/08/25
Requesting Provider: Angelique Thompson
Performing Provider: Dorys Wolfe
Reason for Consultation: leukopenia, thrombocyopenia
Impression
Impression
Acute onset systemic symptoms
Acute bicytopenia
Recent unremarkable CBC is reassuring, suspect infectious cause of cytopenias.
Plan
Plan
- infectious workup as per ID
- U/S spleen now, exclude splenomegaly
Thank you for consult, will follow along with you.
Patient History
History of Present Illness
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 She noticed chills and aches but no respiratory or cold-like symptoms. She tested herself for influenza came back
positive. She called her primary was put on Tamiflu but she took only 2 doses due to nausea. In the emergency room, she had low sodium around 124. CBC was signficant for WBC 2.4, 0.4% immature granulocytes and plt of 33K. CBC from 12/31/24 was
unremarkable other than minimally elevated monocyte %. Sed rate was elevated at 56 on 12/31/24. Denies LUQ pain or fullness.
Past-Medical/Surgical History
Past Medical History
Hx Right thigh sarcoma s/p chemotherapy and resection, in remission for years.
Hypothyroidism
Chronic large palpable liver cyst
Social History
Tobacco: Former Smoker
Alcohol: Occasional
Drug: None
Employment: Retired (nurse)
Family History
Family History: Not Pertinent
Patient Medication
�Medication �Instructions �Recorded �Confirmed �Last Taken �Type
levothyroxine 50 mcg tablet 50 mcg PO DAILY Thyroid 02/07/25 02/07/25 02/06/25 History
(Synthroid)
oseltamivir 75 mg capsule (Tamiflu) 75 mg PO BID INFLUENZA 02/07/25 02/07/25 02/07/25 History
Active Medications
Generic Name Dose Route Start Last Admin
Trade Name Freq PRN Reason Stop Dose Admin
Acetaminophen 1,000 mg 02/07/25 19:29 02/07/25 23:32
Acetaminophen 500 Mg Tablet PO 03/07/25 19:28 1,000 mg
Q6HPRN PRN Administration
fever, pain
Ceftriaxone Sodium 2,000 mg 02/08/25 18:00 02/08/25 18:33
Ceftriaxone 2,000 Mg/20 Ml Vial IV 2,000 mg
Q24H JOON Administration
Doxycycline Hyclate 100 mg 02/08/25 10:00 02/08/25 20:09
Doxycycline 100 Mg Capsule PO 100 mg
Q12 JOON Administration
Sodium Chloride 1,000 mls @ 60 mls/hr 02/07/25 19:00 02/08/25 13:24
Nss IV 1,000 mls
.[id number] JOON Administration
Sodium Chloride 500 mls @ 500 mls/hr 02/08/25 21:03 02/08/25 21:22
Nss IV 02/08/25 22:02 500 mls
BOLUS ONE Administration
Levothyroxine Sodium 50 mcg 02/08/25 07:00 02/08/25 09:00
Levothyroxine 50 Mcg Tablet PO 03/08/25 06:59 50 mcg
DAILY@0600 JOON Administration
Ondansetron HCl 4 mg 02/07/25 19:29
Ondansetron 4 Mg/2 Ml Vial IV 03/07/25 19:28
Q6HPRN PRN
NAUSEA/VOMITING
Sodium Chloride 0 flush 02/07/25 19:00
Sodium Chloride 0.9% (Flush) Syringe IV 03/07/25 18:59
PER PROTOCOL JOON
Sterile Water 20 ml 02/08/25 18:00 02/08/25 18:33
Sterile Water For Injection 20 Ml Vial IV 03/08/25 17:59 20 ml
Q24H JOON Administration
Review of Systems
-
History Source: Patient
All Other Systems: Reviewed and Negative
Physical Exam
-
General: Well Developed and Well Nourished
HEENT: Moist Mucous Membranes; Negative Jaundice
Cardiology: Normal Sinus Rhythm, S1 and S2
Pulmonary: Clear; Negative Wheezes or Rales
GI: Soft and No Organomegaly
Musculoskeletal: No Clubbing, No Cyanosis and No Edema
Extremities: No C/C/E
Neurology: Non Focal and No Lateralizing Symptoms
Skin: Warm and Dry
Hematologic / Lymphatic: No Lymphadenopathy and No Petechiae
Psych: Calm and Intact Judgement/Insight
Labs
Lab Results
WBC 1.9 10^3/uL (4.8-10.8) L* 02/08/25 06:26
RBC 3.70 10^6/uL (4.20-5.40) L 02/08/25 06:26
Hgb 11.0 g/dL (12.0-16.0) L 02/08/25 06:26
Hct 31.6 % (37.0-47.0) L 02/08/25 06:26
MCV 85.4 fL (81.0-99.0) 02/08/25 06:26
MCH 29.7 pg (27.0-31.0) 02/08/25 06:26
MCHC 34.8 g/dL (33.0-37.0) 02/08/25 06:26
RDW 13.8 % (11.5-14.5) 02/08/25 06:26
Plt Count 31 10^3/uL (130-400) L 02/08/25 06:26
MPV 11.6 fL (7.4-10.4) H 02/08/25 06:26
Abs Immat Gran (auto) 0.0 10^3/uL (0-0.05) 02/07/25 13:06
Absolute Neuts (auto) 2.0 10^3/uL (1.4-6.5) 02/07/25 13:06
Absolute Lymphs (auto) 0.3 10^3/uL (1.2-3.4) L 02/07/25 13:06
Absolute Monos (auto) 0.2 10^3/uL (0.1-0.6) 02/07/25 13:06
Absolute Eos (auto) 0.0 10^3/uL (0-0.7) 02/07/25 13:06
Absolute Basos (auto) 0.0 10^3/uL (0-0.2) 02/07/25 13:06
Immature Gran % 0.4 % (0-0.5) 02/07/25 13:06
Neutrophils % 82.2 % (42.2-75.2) H 02/07/25 13:06
Lymphocytes % 10.8 % (20.5-51.1) L 02/07/25 13:06
Monocytes % 6.2 % (1.7-9.3) 02/07/25 13:06
Eosinophils % 0.0 % (0-6) 02/07/25 13:06
Basophils % 0.4 % (0-2) 02/07/25 13:06
Creatinine 0.7 mg/dL (0.6-1.0) 02/08/25 06:26
Vital Signs
Vital Signs
Temp Pulse Resp BP Pulse Ox
98.5 F 55 16 78/44 95
02/08/25 19:28 02/08/25 20:44 02/08/25 19:28 02/08/25 20:44 02/08/25 19:28
--- NOTE | 2025-02-08 23:24 | W.PN.UPDATE ---
Update Note
Progress Note Update
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 Patient asymptomatic reports usually her HR is low at 60's. At present VS 91/54, HR is 50. EKG ordered
EKG noted, no previous EKG to compare, not in any acute distress, denies chest pain, shortness of breath, dizziness or lightheadedness. Likely due to hyponatremia?
Hx of Hypothyroidism, TSH wnl, no hx of sleep apnea
will order another EKG and Trop in AM
Cardiology consult for bradycardia
At 0230 BP 80/46 HR 36 Will order 5mg Midodrine, NSS 500 CC bolus and Transfer to IMU. May need Pressors. will obtain labs early.
left VM in daughter Odalis phone, left DIRECTOR OF [employer]CILLARY SERVICES's phone number to call back.
[2025-02-09] VITALS (15 sets, daily range): BP systolic 72–106; BP diastolic 42–81; BMI 22.1
[2025-02-09] MEDS: NSS 500 IV (02:36)
--- NOTE | 2025-02-09 02:55 | PTCARENOTE ---
Pt's BP 80/46, HR 45, intermittently dipping as low as 36. Manual BP 72/44. Pt remains asymptomatic. House Provider notified. Orders received for 5mg PO midodrine, 500mL NS bolus, and transfer to IMU. AM labs drawn early per House Provider request.
[2025-02-09 03:09] LABS: Hematocrit 26.0 % (37.0-47.0); Hemoglobin 9.2 g/dL (12.0-16.0); Mean Corp Hgb Conc. 35.4 g/dL (33.0-37.0); Mean Corpuscular Volume 85.5 fL (81.0-99.0); Platelet Count 17 10^3/uL (130-400); Red Cell Dist. Width 14.1 % (11.5-14.5)
[2025-02-09 03:16] LABS: ALT (SGPT) 59 U/L (0-35); AST (SGOT) 91 U/L (14-36); Albumin 2.7 g/dl (3.5-5.0); Alkaline Phosphatase 49 U/L (38-126); Blood Urea Nitrogen 12 mg/dl (7-17); Calcium 7.9 mg/dl (8.4-10.2); Carbon Dioxide 23 mmol/L (22-30); Chloride 112 mmol/L (98-107); Estimated Creatinine Clearance 61 ml/min; Glucose 92 mg/dl (70-99); Magnesium 1.9 mg/dl (1.6-2.3); Potassium 3.5 mmol/L (3.5-5.1); Sodium 135 mmol/L (135-145); Total Protein 4.9 g/dl (6.3-8.2); eGFR > 60.00
[2025-02-09 03:29] LABS: Troponin I < 0.012 ng/ml
[2025-02-09] MEDS: NSS 1000 IV (03:33)
[2025-02-09 04:05] LABS: Absolute Neutrophils -Man Diff 0.8 10^3/uL (1.4-6.5); Platelets Checked Yes
[2025-02-09 04:06] LABS: Normal RBC Morphology Yes; Total Cells Counted 100; Toxic Granulation 1+
[2025-02-09] MEDS: SYNTHROID 50 MCG PO (05:39)
--- NOTE | 2025-02-09 08:22 | W.PN.HOSP.TC ---
Today's Communication/Plan
-
.
Assessment / Plan
Assessment / Plan
Physical Exam
General: No Apparent Distress and Comfortable
HEENT: Moist mucous membranes and Atraumatic
Respiratory: Clear but limited at bases
Cardiac: S1/S2 and Regular Rhythm, bradycardia
GI: Soft, Non Tender and Non Distended
Genito-urinary: No Merritt
Musculoskeletal: No Clubbing, No Cyanosis and No Edema
Skin: No Jaundice, no bruising
Neuro: AO x 3 and Nonfocal/grossly intact
Psych: Calm and Intact Judgment/Insight
79 years old female presented with nonspecific symptoms of malaise, aches, anorexia and nausea was found to have hyponatremia and thrombocytopenia
#Acute illness with muscle aches, fever at home.
Rule out infectious source or others no respiratory or cold like symptoms
History of positive influenza screen at home
Fever has resolved
Negative blood culture so far. Babesia smear x 2 neg. Lyme pending. anaplasma/ehrlichia PCR pending.
On empiric Doxy and intravenous Rocephin
Patient does not have respiratory symptoms but developing mild cough which could be atelectasis/volume overload from IV fluid.
Negative influenza and COVID.
No need for Tamiflu therapy
Appreciate ID help
# Mild cough
Could be atelectasis
Will hold IV fluid, patient received boluses due to hypotension
Incentive spirometry
Repeat chest x-ray in a.m.
# hypotension
seems caronic but worsened in the hospital
currently SBP around 100-90
PRN midodrine
Not dizzy but she has been in bed in hospital
# Sinus bradycardia
Patient reported her baseline heart rate around 60
Could be related to the infection
Repeat chest x-ray
Order echocardiogram
negative troponin
EKG reviewed
Appreciate cardiology input
# Hyponatremia
Resolved.
Low serum osmolality, normal urine osmolality, low urine sodium
No confusion. AAOX3.
c/w fluid restrictions, s/p infusion NS
Appreciate nephrology recommendation.
# Nausea, could be induced by recent viral illness or hyponatremia
No abdominal pain or tenderness
c/w Zofran as needed
# Mild elevation in creatinine kinase, likely from recent viral illness
Nontraumatic mild rhabdomyolysis
s/ p with IV fluid
Tylenol for muscle pain
# Thrombocytopenia, mild anemia with leukopenia
Pancytopenia, could be due to infectious etiology due to sudden onset or bone marrow disease.
Recent history of influenza. She tested negative for influenza and COVID in the hospital. No respiratory symptoms. Chest x-ray no infiltrate. No hypoxia, no history of exposure to toxic material.
No ecchymosis or bruising. No bleeding. She has not started any new medications.
Will monitor platelet count
Appreciate hematology recommendations.
# Hypothyroidism,
Normal TSH
Updated the daughter Dr. Jacobo who is a physician with [facility]
Total time spent to see the patient, examine the patient, review data and lab result, discuss treatment plan with patient, consultants, nursing staff around 55 minutes
Anticipated Discharge: > 48 hours
Subjective/Interval History
-
Date of Service: February 09, 2025
No dizziness
no sob
No chest pain
Objective Data
-
Labs:
Laboratory Results
02/09/25 02/09/25 02/09/25
02:50 08:03 08:04
WBC 2.6 L
Hgb 9.2 L
Hct 26.0 L
Plt Count 17 L* D
PT Pending
INR Pending
APTT Pending
Sodium 135
Potassium 3.5
Chloride 112 H
Carbon Dioxide 23
BUN 12
Creatinine 0.6
Glucose 92
Calcium 7.9 L
Total Bilirubin 0.3 Pending
AST 91 H Pending
ALT 59 H Pending
Alkaline Phosphatase 49 Pending
Vital Signs:
Vital Signs
Temp Pulse Resp BP Pulse Ox
97.8 F 49 20 98/61 85
02/09/25 07:11 02/09/25 08:00 02/09/25 08:00 02/09/25 08:00 02/09/25 08:00
I&O
02/08/25 02/09/25 02/10/25
06:59 06:59 06:59
Intake Total 532 / 532 1960 / 1960
Output Total 400 / 400 900 / 900
Balance 132 / 132 1060 / 1060
--- NOTE | 2025-02-09 08:24 | W.PN.ID1 ---
Date of Service
Date of Service: February 09, 2025
Today's Communication
Continue doxycycline.
Assessment / Plan
# Fever- resolving
# Acute leukopenia, thrombocytopenia, ,anemia
# Low BP
# bradycardia (no heart block on EKG)
# Elevated LFT's
# Suspect tick-borne illness
- COVID/Flu neg
- blood cx's x2 neg to date
- CXR - no pneumonia
- Babesia smear x 2 neg.
- Lyme pending
- anaplasma/ehrlichia PCR pending
- Continue empiric doxycycline 100mg po bid (d2)
- On empiric ceftriaxone
- Trend temps/CBC/vitals
Chief Complaint
-: Fever and Other (cytopenia)
Subjective / Review of Systems
Feels slightly better. No more XIE. Appetite increase.
Vital Signs / Physical Exam
Vital Signs
Vital Signs
Temp Pulse Resp BP Pulse Ox
97.8 F 49 20 98/61 85
02/09/25 07:11 02/09/25 08:00 02/09/25 08:00 02/09/25 08:00 02/09/25 08:00
Physical Exam
Constitutional: No Acute Distress
Eyes: Sclera Anicteric
Cardiovascular: S1/S2 and Other (bradycardic)
Pulmonary: Clear
Gastrointestinal: Soft, Non Tender and Non Distended
Extremities: Negative Edema
Musculoskeletal: Negative Joint Swelling or Joint Effusion
Neurological: AO x 3
Objective Data
Lab Data
Lab Results
02/09/25 02:50
02/09/25 02:50
Estimated Creat Clear 61 ml/min 02/09/25 02:50
Total Bilirubin 0.3 mg/dl (0.2-1.3) 02/09/25 02:50
AST 91 U/L (14-36) H 02/09/25 02:50
ALT 59 U/L (0-35) H 02/09/25 02:50
Alkaline Phosphatase 49 U/L (38-126) 02/09/25 02:50
Most recent labs reviewed.
Micro Results:
02/07/25 22:09 Blood Culture - Preliminary
Blood/Venous No Growth in 24 hours- Final report to follow
02/08/25 08:41 Blood Parasites Smear - Final
Blood/Venous
02/07/25 18:19 Blood Parasites Smear - Final
Blood/Venous
02/07/25 22:16 Urine Culture - Pending
Urine
02/07/25 14:04 Influenza Types A & B (DC) - Final
Nasal Swab Negative for Influenza A & B, NAAT
Negative results must be combined with clinical observations
and patient history.
Nucleic Acid Amplification test (NAAT)performed on the
[employer] platform.
02/07/25 CXR: Findings suggesting small bilateral pleural effusions. Lungs appear otherwise clear.
[2025-02-09] MEDS: VIBRAMYCIN 100 MG PO ×2 (08:50→19:53)
[2025-02-09 09:26] LABS: Reticulocyte Count 0.4 % (0.4-2.8)
[2025-02-09 09:35] LABS: INR 0.98; PT 13.3 Sec (11.4-14.6)
[2025-02-09 09:36] LABS: APTT 31.4 Sec (23.4-35.0); Fibrinogen 364 MG/DL (199-459)
[2025-02-09 10:25] LABS: ALT (SGPT) 61 U/L (0-35); AST (SGOT) 88 U/L (14-36); Albumin 3.0 g/dl (3.5-5.0); Alkaline Phosphatase 47 U/L (38-126); LDH 371 U/L (120-246); Total Protein 5.5 g/dl (6.3-8.2)
--- NOTE | 2025-02-09 12:11 | W.PN.NEPH.PH ---
Today's Communication / Plan
-
cont IVF and midodrine
Assessment/Plan
-
IMP:
Hyponatremia
Nausea
Mildly elevated CK
Thrombocytopenia with leukopenia
Recent history of influenza tested negative for influenza and COVID in the hospital
Hypothyroidism
Hypocalcemia
Plan:
A/w gen symp of nausea, malaise, anorexia
possible symptomatic hyponatremia-could be hypovolemia
sodium improving to 135 with NS
high U osmo at 514 and U na low <5
normal TSH and cortisol
liberate fluids orally
SBP in 80s but MAP >65, cont IVF
midodrine added per primary, s/p multiple bolus iVF
hypocalcemia-corrected araceli is normal, normal vit D.
leucopenia and thrombocytopenia continues, LDH high-heme follows
pt reports having large liver cyst which is palpable on exam
ID follow son Dominic
d/w pt
-
-
Date of Service: February 09, 2025
CC / HPI / ROS
-
Chief Complaint:
hyponatremia
History of Present Illness:
sodium improving to 135
Bp soft
no fever
leucopenia better at 2.6, hb low 9.2, plt low 17k
Review of Systems:
feels more energic today and eating well
no cp or sob
mild cough
Labs
-
Labs:
WBC 2.6 10^3/uL (4.8-10.8) L 02/09/25 02:50
RBC 3.04 10^6/uL (4.20-5.40) L 02/09/25 02:50
Hgb 9.2 g/dL (12.0-16.0) L 02/09/25 02:50
Hct 26.0 % (37.0-47.0) L 02/09/25 02:50
Plt Count 17 10^3/uL (130-400) L* D 02/09/25 02:50
Sodium 135 mmol/L (135-145) 02/09/25 02:50
Potassium 3.5 mmol/L (3.5-5.1) 02/09/25 02:50
Chloride 112 mmol/L (98-107) H 02/09/25 02:50
Carbon Dioxide 23 mmol/L (22-30) 02/09/25 02:50
BUN 12 mg/dl (7-17) 02/09/25 02:50
Creatinine 0.6 mg/dL (0.6-1.0) 02/09/25 02:50
eGFR > 60.00 02/09/25 02:50
Glucose 92 mg/dl (70-99) 02/09/25 02:50
Calcium 7.9 mg/dl (8.4-10.2) L 02/09/25 02:50
Albumin 3.0 g/dl (3.5-5.0) L 02/09/25 09:15
Physical Exam
-
Vital Signs:
Vital Signs
Temp Pulse Resp BP Pulse Ox
97.8 F 53 21 86/55 93
02/09/25 07:11 02/09/25 11:00 02/09/25 11:00 02/09/25 10:20 02/09/25 11:00
Cardiovascular:: Regular rate and rhythm
Respiratory:: Bilateral: CTA
Lung Excursion:: Normal
Abdomen:: Nontender and Soft (palpable liver RUQ)
Extremity Edema:: None: Bilateral:
Merritt Catheter: No
--- NOTE | 2025-02-09 13:01 | CON.CAR ---
Consultation
Consultation Request
Date/Time Consultation Requested: 02/09/2025 at 1100
Date/Time Consultation Performed: 02/09/2025 at 1300
Requesting Provider: Dr. Thompson
Performing Provider: Dr. Nguyễn Bolivar
Reason for Consultation: Bradycardia
Medical History
-
Chief Complaint: Malaise, fatigue, bradycardia
History of Present Illness:
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 Resection of sarcoma was many years ago. She presented with nonspecific symptoms of malaise, anorexia, nausea fatigue,
suspected respiratory illness and home testing for influenza was positive, negative for COVID. Started on Tamiflu for 2 doses, on presentation to ER had sodium of 124 leukopenia and severe thrombocytopenia. Found to have periods of bradycardia on
the monitor with heart rates dipping into the high 30s, no significant arrhythmia. No prior history of cardiac issues. She may have had an echo many years ago in the setting of her sarcoma therapy. She has no cardiovascular symptoms and as
mentioned above exercises on a daily basis.
Past Medical History
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
Past Surgical History: Other (Resection of sarcoma right thigh)
Social History
Tobacco: Former Smoker
Alcohol: Occasional
Drug: None
Personal:
Living: Alone
Employment: Retired (Was a nurse)
Family History
Family History: Reviewed & Not Pertinent
Allergies / Home Medications
Allergy/AdvReac Type Severity Reaction Status Date / Time
No Known Allergies Allergy Verified 02/07/25 11:53
�Medication �Instructions �Recorded �Confirmed �Type
levothyroxine 50 mcg tablet 50 mcg PO DAILY Thyroid 02/07/25 02/07/25 History
(Synthroid)
oseltamivir 75 mg capsule (Tamiflu) 75 mg PO BID INFLUENZA 02/07/25 02/07/25 History
Review of Systems
-
All other systems: Negative unless noted
Physical Exam
Vital Signs
Temp Pulse Resp BP Pulse Ox
36.4 C 50 16 103/55 98
02/09/25 12:11 02/09/25 12:00 02/09/25 12:11 02/09/25 12:00 02/09/25 12:11
Lab Results
02/09/25 02:50
02/09/25 02:50
Troponin I < 0.012 ng/ml 02/09/25 02:50
Physical Exam
General: No Apparent Distress (Pleasant, daughter at bedside who is a sports medicine physician for [employer])
HEENT: Normocephalic
Respiratory: Clear
Cardiac: Regular Rhythm and Murmur (Possible soft mitral regurgitation murmur at apex with click, otherwise normal)
GI: Non Tender and Non Distended
Musculoskeletal: No Edema
Skin: Warm and Dry
Neuro: AO x 3
Psych: Calm
Impression / Plan
-
Impression:
Suspected acute infectious illness
Possible influenza, being screened for tickborne diseases, etc., currently on ceftriaxone and doxycycline
Hyponatremia
Leukopenia
Severe thrombocytopenia
Mildly elevated CPK
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
Possible mild mitral valve prolapse/MVP
Plan:
She presents with asymptomatic bradycardia with occasional pauses down into the high 30s. She may have underlying sick sinus syndrome, but it could be the relative bradycardia is related to her underlying systemic and presumed infectious issue
which seems to be improving with antibiotics. If she does have early sick sinus syndrome, lifetime risk of requiring pacemaker will be somewhat elevated. However, I suspect no intervention will be required.
Will check an echocardiogram and can arrange for an outpatient monitor. I am hopeful that no significant pathology will be uncovered, though she may have mitral valve prolapse with mild mitral regurgitation.
I congratulated her on her exercise efforts and told her to keep up her healthy lifestyle.
Further management can be based upon her study results. Suspect she will be ready for discharge from cardiac standpoint within 24 hours.
Data Reviewed
-
EKG: Tracing Personally Visualized and interpreted (Sinus bradycardia, incomplete right bundle branch block, left anterior fascicular block) and Discussed with Family
Radiology: Image Personally Visualized and interpreted (Minimal blunting posterior and right CPA, potentially consistent with minimal pleural effusion)
Ultrasound: Report Reviewed by me (Mild splenomegaly by ultrasound)
Labs: Labs Reviewed by me (White count 1.9, platelets 17, absolute neutrophil 0.8, BUN/creatinine 12 and 0.6, potassium 3.5, AST 91, ALT 59, troponin undetectable, LDH is 371, TSH is 1.54, CPK is 264, viral antibody screens negative, 6 smears for
babesiosis pending)
[2025-02-09 15:34] LABS: Hepatitis B Surface Antigen Negative (Negative)
--- NOTE | 2025-02-09 15:48 | PTCARENOTE ---
Assumed care of patient this morning. She reports feeling better today. Denies any pain, nausea. Pt only reported chest heaviness, which patient had a troponin and EKG early this morning for nightshift. Pt reports it may be anxiety but does not feel
anxious. Daughter visiting and updated by , and , who all were at the bedside. Incentive spirometer given to patient and provided education, patient demonstrated understanding. Pt sent for CXR, report TT to
, who advised that we will stop the IV fluids. BP low around 1000, given Midodrine per MAR with improvement. Pt sat out in the chair for approx 4 hours. Assessment, care and VS as charted.
[2025-02-09 15:51] LABS: Hepatitis A Antibody, Total Positive (Negative)
[2025-02-09] MEDS: STERILE WATER FOR INJECTION 20 ML IV (17:25)
[2025-02-09] MEDS: ROCEPHIN 2000 MG IV (17:25)
--- NOTE | 2025-02-09 22:05 | W.PN.ONC2 ---
Today's Communication / Plan
-
Pt feels better but cytopenias worse.
Additional labs sent for today.
Low threshold for repeating hemolysis labs if further drop in hemoglobin.
Impression
Impression
Acute onset systemic symptoms
Acute pancytopenia
Hypotension, acute on chronic
Plan
Plan
Cytopenias are worse today.
Personally reviewed peripheral smear which shows spherocytes, fragments, few platelets and no clumping. Although smear suggestive of microangiopathic process, hemolysis labs are negative so far (haptoglobin pending) and DIC panel normal.
Monospot and hep C negative on admission.
Splenic U/S shows mild splenomegaly by splenic index.
Additional lab workup sent including flow cytometry.
Subjective/Objective
Chief Complaint
Hematology follow up of acute onset pancytopenia
Subjective
Feels better today. Daughter, a rehab medicine physician, is at bedside.
Vital Signs:
Vital Signs
Temp Pulse Resp BP Pulse Ox
97.7 F 47 18 103/54 97
02/09/25 19:20 02/09/25 20:02 02/09/25 20:02 02/09/25 20:02 02/09/25 20:58
Lab Results:
Laboratory Data
WBC 2.6 10^3/uL (4.8-10.8) L 02/09/25 02:50
Hgb 9.2 g/dL (12.0-16.0) L 02/09/25 02:50
Plt Count 17 10^3/uL (130-400) L* D 02/09/25 02:50
PT 13.3 Sec (11.4-14.6) 02/09/25 09:15
INR 0.98 02/09/25 09:15
APTT 31.4 Sec (23.4-35.0) 02/09/25 09:15
eGFR > 60.00 02/09/25 02:50
Physical Exam
Awake, alert, pale, non-toxic
Review of Systems
Review of Systems
A ten point interval review of systems was performed and is negative in detail except as per the HPI.
Orders
Orders
Orders From Last 24 Hours
02/09/25 09:15
Fibrinogen Urgent
Haptoglobin [S] Urgent
LDH Urgent
Aklim-Iyiu-Ulpepiu Urgent
PTT Urgent
Prothrombin Time Urgent
Reticulocyte Count Urgent
02/09/25 12:24
CR Chest - 2 Views Routine
02/09/25 14:20
CMV IgG Antibody [S] Routine
CMV IgM Antibody [S] Routine
Sohail-Morris Virus Ab Panel I [S] Routine
Hepatitis A Antibody, Total Routine
Hepatitis B Core Ab, Total Routine
Hepatitis B Surface Antibody Routine
Hepatitis B Surface Antigen Routine
Parvo Virus (B19) IgG & IgM [S] Routine
02/10/25 06:00
Leukemia/Lymphoma Phenotyping [S] IN AM
[2025-02-10] VITALS (13 sets, daily range): BP systolic 83–118; BP diastolic 50–87; BMI 20.3
--- NOTE | 2025-02-10 00:18 | PTCARENOTE ---
Patient AAOx3. Patient HR in the 40s, periodically going down into the low 30s and bp was low 81/42. PRN midodrine given. TT SNOWMOBILE MECHANIC about patient HR, patient remains asymptomatic so continuing to monitor. Patient using incentive spirometer prn.
Patient on RA. Assessment and vital as charted. call juarze in reach.
[2025-02-10] MEDS: SYNTHROID 50 MCG PO (03:49)
[2025-02-10 04:36] LABS: Hematocrit 27.6 % (37.0-47.0); Hemoglobin 9.7 g/dL (12.0-16.0); Mean Corp Hgb Conc. 35.1 g/dL (33.0-37.0); Mean Corpuscular Volume 86.0 fL (81.0-99.0); Platelet Count 28 10^3/uL (130-400); Red Cell Dist. Width 14.6 % (11.5-14.5)
[2025-02-10 04:45] LABS: ALT (SGPT) 55 U/L (0-35); AST (SGOT) 67 U/L (14-36); Albumin 2.8 g/dl (3.5-5.0); Alkaline Phosphatase 49 U/L (38-126); Blood Urea Nitrogen 11 mg/dl (7-17); Calcium 8.1 mg/dl (8.4-10.2); Carbon Dioxide 22 mmol/L (22-30); Chloride 114 mmol/L (98-107); Estimated Creatinine Clearance 61 ml/min; Glucose 94 mg/dl (70-99); Potassium 3.5 mmol/L (3.5-5.1); Sodium 140 mmol/L (135-145); Total Protein 5.1 g/dl (6.3-8.2); eGFR > 60.00
[2025-02-10] MEDS: VIBRAMYCIN 100 MG PO ×2 (07:33→19:57)
[2025-02-10] MEDS: TYLENOL 1000 MG PO (07:42)
--- NOTE | 2025-02-10 08:00 | PTCARENOTE ---
Assumed care of pt from table games shift manager RN. AAJose C3. SB on tele, HRs 40s. BP 116/87. Assessment documented. Pt resting in bed, call juarez in reach.
[2025-02-10 08:03] LABS: Nucleated Red Blood Cells % 0 %
--- NOTE | 2025-02-10 09:05 | W.PN.ONC2 ---
Today's Communication / Plan
-
on empiric doxycycline - ID following
daily CBC
Impression
Impression
p/w fever, malaise, anorexia, nausea,fatigue
peripheral smear which shows spherocytes, fragments, few platelets and no clumping. Although smear suggestive of microangiopathic process, hemolysis labs are negative so far (haptoglobin pending) and DIC panel normal.
Acute pancytopenia -WBC/ABC improved today, platelets improved from 17,000->28,000
Hypotension, acute on chronic
bradycardia
hyponatremia
Plan
Plan
infectious work up underway
f/u peripheral flow cytometry
f/u infectiosus evaluation
chec Quanteferon gold -reports prior positive PPD & opted for no tx 40 years ago
Subjective/Objective
Subjective
no new complaints
denies bleeding
ambulating to bathroom
Vital Signs:
Vital Signs
Temp Pulse Resp BP Pulse Ox
97.5 F 40 15 110/62 95
02/10/25 07:53 02/10/25 07:00 02/10/25 07:00 02/10/25 06:00 02/10/25 07:47
Lab Results:
Laboratory Data
WBC 5.1 10^3/uL (4.8-10.8) 02/10/25 04:03
Hgb 9.7 g/dL (12.0-16.0) L 02/10/25 04:03
Plt Count 28 10^3/uL (130-400) L* D 02/10/25 04:03
PT 13.3 Sec (11.4-14.6) 02/09/25 09:15
INR 0.98 02/09/25 09:15
APTT 31.4 Sec (23.4-35.0) 02/09/25 09:15
eGFR > 60.00 02/10/25 04:03
Physical Exam
HEENT: Moist Mucous Membranes; No Jaundice
Pulmonary: Other (unlabored)
GI: Soft
Extremities: Pulses Present
--- NOTE | 2025-02-10 10:41 | W.PN.CARDCBS ---
Today's Communication / Plan
-
Await echo
Will apply 1 week monitor at discharge
Impression / Plan
-
Impression:
Suspected acute infectious illness
Possible influenza, being screened for tickborne diseases, etc., currently on ceftriaxone and doxycycline
Hyponatremia
Leukopenia
Severe thrombocytopenia
Mildly elevated CPK
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
Possible mild mitral valve prolapse/MVP
Plan:
Despite periods of sinus bradycardia she looks well. Currently no indication for pacemaker. Suspect heart rate will improve as she recovers from her as yet undefined systemic infection. Overall it looks like she is recovering with improving liver
function, platelets, white count.
Await echocardiogram.
We will apply a 1 week monitor at discharge.
Continue to monitor.
Progress Note - Editor Producer
Subjective
Date of Service: February 10, 2025:
79-year-old very healthy woman with recent systemic illness with malaise, anorexia, nausea, fatigue, flu positive, negative for COVID, admitted with hyponatremia, leukopenia, severe thrombocytopenia and bradycardia with heart rates dipping into the
30s
Current meds: Doxycycline, levothyroxine, ceftriaxone
PMH sarcoma of right leg, treated with radiation, chemo and resection years ago, hypothyroidism
86/55, pulse 55, respiratory rate 15, temp is 36.4, currently she offers no complaints, head neck exam unremarkable, possible soft apical murmur and possible click, abdomen benign extremities without clubbing cyanosis or edema
Hemoglobin today is 9.7, platelets 28, had been 17, white count now 5.1, potassium is 3.5 BUN/creatinine are 11 and 0.5, AST is 67, ALT is 55, both improved
Chest x-ray yesterday, minimal blunting of subject scientific research
ECG yesterday sinus bradycardia, rate 49, left axis/left anterior fascicular block, prior showed incomplete right bundle
Telemetry: Periods of bradycardia to the mid 30s
Objective
Labs:
02/10/25 04:03
02/10/25 04:03
Labs
Hgb 9.7 g/dL (12.0-16.0) L 02/10/25 04:03
Hct 27.6 % (37.0-47.0) L 02/10/25 04:03
Plt Count 28 10^3/uL (130-400) L* D 02/10/25 04:03
PT 13.3 Sec (11.4-14.6) 02/09/25 09:15
INR 0.98 02/09/25 09:15
APTT 31.4 Sec (23.4-35.0) 02/09/25 09:15
Sodium 140 mmol/L (135-145) 02/10/25 04:03
Potassium 3.5 mmol/L (3.5-5.1) 02/10/25 04:03
BUN 11 mg/dl (7-17) 02/10/25 04:03
Creatinine 0.5 mg/dL (0.6-1.0) L 02/10/25 04:03
Glucose 94 mg/dl (70-99) 02/10/25 04:03
Troponins
02/09/25
02:50
Troponin I < 0.012
Vital Signs and I&O:
Vital Signs
Temp Pulse Resp BP Pulse Ox
36.4 C 55 15 86/55 95
02/10/25 07:53 02/10/25 10:04 02/10/25 07:00 02/10/25 10:04 02/10/25 07:47
Vital Signs
Temp Pulse Resp BP Pulse Ox
36.4 C 55 15 86/55 95
02/10/25 07:53 02/10/25 10:04 02/10/25 07:00 02/10/25 10:04 02/10/25 07:47
Intake & Output
0702/09/25 02/10/25 02/11/25
07:59 07:59 07:59 07:59
Intake Total 632 / 632 1860 / 1860 1080 / 1080
Output Total 400 / 400 900 / 900
Balance 232 / 232 960 / 960 1080 / 1080
Physical Exam
Physical Exam
See above
--- NOTE | 2025-02-10 12:00 | W.PN.ID1 ---
Date of Service
Date of Service: February 10, 2025
Today's Communication
Continuje doxycyline.
DC ceftriaxone
Assessment / Plan
# Fever- resolved
# Acute leukopenia resolving
# Acute thrombocytopenia, improved today
# Acute anemia
# bradycardia (no heart block on EKG)
# Elevated LFT's
# Suspect tick-borne illness (Anaplasma)
- COVID/Flu neg
- blood cx's x2 neg to date
- CXR - no pneumonia
- Babesia smear x 2 neg.
- Lyme pending
- anaplasma/ehrlichia PCR pending
- Continue empiric doxycycline 100mg po bid (d3 of )
- dc empiric ceftriaxone
- Trend CBC
Chief Complaint
-: Other (cytopenia)
Subjective / Review of Systems
Continues to feel better.
Appetite good.
Vital Signs / Physical Exam
Vital Signs
Vital Signs
Temp Pulse Resp BP Pulse Ox
97.5 F 55 15 86/55 95
02/10/25 07:53 02/10/25 10:04 02/10/25 07:00 02/10/25 10:04 02/10/25 07:47
Physical Exam
Constitutional: No Acute Distress and Comfortable
Cardiovascular: Regular Rate and S1/S2
Pulmonary: Clear
Gastrointestinal: Soft, Non Tender, Non Distended and Normal Bowel Sounds
Extremities: Negative Edema
Neurological: AO x 3
Objective Data
Lab Data
Lab Results
02/10/25 04:03
02/10/25 04:03
PT 13.3 Sec (11.4-14.6) 02/09/25 09:15
INR 0.98 02/09/25 09:15
APTT 31.4 Sec (23.4-35.0) 02/09/25 09:15
Estimated Creat Clear 61 ml/min 02/10/25 04:03
Total Bilirubin 0.3 mg/dl (0.2-1.3) 02/10/25 04:03
AST 67 U/L (14-36) H 02/10/25 04:03
ALT 55 U/L (0-35) H 02/10/25 04:03
Alkaline Phosphatase 49 U/L (38-126) 02/10/25 04:03
Most recent labs reviewed.
Micro Results:
02/07/25 22:09 Blood Culture - Preliminary
Blood/Venous No Growth in 48 hours- Final report to follow
02/07/25 22:16 Urine Culture - Final
Urine NO GROWTH
02/08/25 08:41 Blood Parasites Smear - Final
Blood/Venous
02/07/25 18:19 Blood Parasites Smear - Final
Blood/Venous
02/07/25 14:04 Influenza Types A & B (DC) - Final
Nasal Swab Negative for Influenza A & B, NAAT
Negative results must be combined with clinical observations
and patient history.
Nucleic Acid Amplification test (NAAT)performed on the
[employer] platform.
02/07/25 CXR: Findings suggesting small bilateral pleural effusions. Lungs appear otherwise clear.
--- NOTE | 2025-02-10 12:45 | W.PN.NEPH.PH ---
Today's Communication / Plan
-
Signed off
Assessment/Plan
-
IMP:
Hyponatremia
Nausea
Mildly elevated CK
Thrombocytopenia with leukopenia
Recent history of influenza tested negative for influenza and COVID in the hospital
Hypothyroidism
Hypocalcemia
Plan:
A/w gen symp of nausea, malaise, anorexia
possible symptomatic hyponatremia-could be hypovolemia
high U osmo at 514 and U na low <5
normal TSH and cortisol
liberate fluids orally
SBP in 80s but MAP >65, cont IVF
midodrine added per primary, s/p multiple bolus iVF
Sodium 140
Appetite improving
Will sign off
-
-
Date of Service: February 10, 2025
CC / HPI / ROS
-
Chief Complaint:
hyponatremia
History of Present Illness:
sodium improving to 135
Bp soft
no fever
leucopenia better at 2.6, hb low 9.2, plt low 17k
Review of Systems:
feels more energic today and eating well
no cp or sob
mild cough
Labs
-
Labs:
WBC 5.1 10^3/uL (4.8-10.8) 02/10/25 04:03
RBC 3.21 10^6/uL (4.20-5.40) L 02/10/25 04:03
Hgb 9.7 g/dL (12.0-16.0) L 02/10/25 04:03
Hct 27.6 % (37.0-47.0) L 02/10/25 04:03
Plt Count 28 10^3/uL (130-400) L* D 02/10/25 04:03
Sodium 140 mmol/L (135-145) 02/10/25 04:03
Potassium 3.5 mmol/L (3.5-5.1) 02/10/25 04:03
Chloride 114 mmol/L (98-107) H 02/10/25 04:03
Carbon Dioxide 22 mmol/L (22-30) 02/10/25 04:03
BUN 11 mg/dl (7-17) 02/10/25 04:03
Creatinine 0.5 mg/dL (0.6-1.0) L 02/10/25 04:03
eGFR > 60.00 02/10/25 04:03
Glucose 94 mg/dl (70-99) 02/10/25 04:03
Calcium 8.1 mg/dl (8.4-10.2) L 02/10/25 04:03
Albumin 2.8 g/dl (3.5-5.0) L 02/10/25 04:03
Physical Exam
-
Vital Signs:
Vital Signs
Temp Pulse Resp BP Pulse Ox
97.9 F 55 15 86/55 95
02/10/25 11:30 02/10/25 10:04 02/10/25 07:00 02/10/25 10:04 02/10/25 07:47
Cardiovascular:: Regular rate and rhythm
Respiratory:: Bilateral: CTA
Lung Excursion:: Normal
Abdomen:: Nontender and Soft (palpable liver RUQ)
Extremity Edema:: None: Bilateral:
Merritt Catheter: No
[2025-02-10 13:31] LABS: Lyme Antibody Screen, EIA Equivocal (Negative)
--- NOTE | 2025-02-10 15:35 | CM ---
CM reviewed pt with Dr Burt, ADC Wed
Per nursing, pt is independent in room, no VN concerns at this time
CM will continue to follow for dc planning
Discharge Disposition- home, no needs anticipated
--- NOTE | 2025-02-10 16:50 | W.PN.HOSP.TC ---
Addendum entered and electronically signed by Dante Burt DO 02/11/25 15:53:
Clarification: Patient was treated for sepsis secondary to anaplasmosis, met SIRS criteria with fever and tachycardia at time of admission, now with confirmed Anaplasma infection, sepsis resolved with treatment
Original Note:
Today's Communication/Plan
-
Assessment / Plan
Assessment / Plan
Physical Exam
General: No Apparent Distress and Comfortable
HEENT: Moist mucous membranes and Atraumatic
Respiratory: Clear but limited at bases
Cardiac: S1/S2 and Regular Rhythm, bradycardia with heart rate around 50
GI: Soft, Non Tender and Non Distended
Genito-urinary: No Merritt
Musculoskeletal: No Clubbing, No Cyanosis and No Edema
Skin: No Jaundice, no bruising
Neuro: AO x 3 and Nonfocal/grossly intact
Psych: Calm and Intact Judgment/Insight
79 years old female presented with nonspecific symptoms of malaise, aches, anorexia and nausea was found to have hyponatremia and thrombocytopenia
#Acute illness with muscle aches and fever:
- Babesia smear negative x 2
- Lyme, Anaplasma, Ehrlichia pending
- Continue empiric doxycycline (today is day 4/14), discontinued ceftriaxone
- Appreciate ID guidance
- Fevers have resolved, pancytopenia improving, flow cytometry pending
- Hyponatremia resolved, nephrology signed off
# Mild cough
Could be atelectasis
Will hold IV fluid, patient received boluses due to hypotension
Incentive spirometry
Repeat chest x-ray in a.m.
# hypotension
seems caronic but worsened in the hospital
currently stable with SBP around 115-90
PRN midodrine
Not dizzy but she has been in bed in hospital
# Sinus bradycardia:
- Heart rate around 50, patient reported her baseline heart rate around 60
- Likely related to the infection
- Echocardiogram pending, cardiology following and planning to apply 1 week monitor at discharge
# Hyponatremia
Resolved.
Low serum osmolality, normal urine osmolality, low urine sodium
No confusion. AAOX3.
c/w fluid restrictions, s/p infusion NS
Appreciate nephrology guidance, now signed off.
# Nausea, could be induced by recent viral illness or hyponatremia
No abdominal pain or tenderness
c/w Zofran as needed
# Mild elevation in creatinine kinase, likely from recent viral illness
Nontraumatic mild rhabdomyolysis
s/ p with IV fluid
Tylenol for muscle pain
# Thrombocytopenia, mild anemia with leukopenia
Pancytopenia, could be due to infectious etiology due to sudden onset or bone marrow disease.
Recent history of influenza. She tested negative for influenza and COVID in the hospital. No respiratory symptoms. Chest x-ray no infiltrate. No hypoxia, no history of exposure to toxic material.
No ecchymosis or bruising. No bleeding. She has not started any new medications.
Will monitor platelet count which is starting to improve
Appreciate hematology recommendations, follow-up flow cytometry
# Hypothyroidism,
Normal TSH
Updated the daughter Dr. Jacobo who is a physician with [facility]
Total time spent to see the patient, examine the patient, review data and lab result, discuss treatment plan with patient, consultants, nursing staff around 55 minutes
Anticipated Discharge: 24 - 48 hours
Subjective/Interval History
-
Date of Service: February 10, 2025
Patient was seen and examined at bedside this morning. She is feeling much better today than she did a few days ago although still feeling fatigue and weakness.
Objective Data
-
Vital Signs:
Vital Signs
Temp Pulse Resp BP Pulse Ox
97.7 F 49 12 118/80 96
02/10/25 15:20 02/10/25 13:06 02/10/25 13:06 02/10/25 13:06 02/10/25 12:00
I&O
02/09/25 02/10/25 02/11/25
06:59 06:59 06:59
Intake Total 1959 / 1959 1080 / 1080
Output Total 900 / 900
Balance 1060 / 1060 1080 / 1080
Review of Systems
-
History Source: Patient
All other systems: Reviewed and negative
Physical Exam
-
General: No Apparent Distress
[2025-02-11] VITALS (8 sets, daily range): BP systolic 106–135; BP diastolic 64–80; BMI 21.4
[2025-02-11] MEDS: SYNTHROID 50 MCG PO (03:58)
[2025-02-11 04:54] LABS: Hematocrit 27.6 % (37.0-47.0); Hemoglobin 9.8 g/dL (12.0-16.0); Mean Corp Hgb Conc. 35.5 g/dL (33.0-37.0); Mean Corpuscular Volume 84.7 fL (81.0-99.0); Platelet Count 63 10^3/uL (130-400); Red Cell Dist. Width 14.6 % (11.5-14.5)
[2025-02-11 05:07] LABS: Blood Urea Nitrogen 9 mg/dl (7-17); Calcium 8.5 mg/dl (8.4-10.2); Carbon Dioxide 27 mmol/L (22-30); Chloride 113 mmol/L (98-107); Estimated Creatinine Clearance 61 ml/min; Glucose 91 mg/dl (70-99); Potassium 3.5 mmol/L (3.5-5.1); Sodium 142 mmol/L (135-145); eGFR > 60.00
[2025-02-11] MEDS: VIBRAMYCIN 100 MG PO (07:50)
--- NOTE | 2025-02-11 09:11 | W.PN.ONC2 ---
Today's Communication / Plan
-
daily CBC -improving
Impression
Impression
p/w fever, malaise, anorexia, nausea,fatigue
anaplasma phagocytophilum positive
peripheral smear which shows spherocytes, fragments, few platelets and no clumping. Although smear suggestive of microangiopathic process, hemolysis labs are negative so far (haptoglobin pending) and DIC panel normal.
Acute pancytopenia -WBC/ABC improved today, platelets improved from 17,000->63,000
hx positive PPD upon return from the [facility]
Hypotension, acute on chronic
bradycardia
hyponatremia
Plan
Plan
on doxycycline
f/u peripheral flow cytometry
f/u infectiosus evaluation
f/u Quanteferon gold with PCP after discharge
Subjective/Objective
Subjective
no new complaints
Vital Signs:
Vital Signs
Temp Pulse Resp BP Pulse Ox
97.7 F 45 16 106/67 93
02/11/25 07:05 02/11/25 05:00 02/10/25 17:23 02/11/25 04:00 02/11/25 05:00
Lab Results:
Laboratory Data
WBC 5.8 10^3/uL (4.8-10.8) 02/11/25 04:06
Hgb 9.8 g/dL (12.0-16.0) L 02/11/25 04:06
Plt Count 63 10^3/uL (130-400) L D 02/11/25 04:06
PT 13.3 Sec (11.4-14.6) 02/09/25 09:15
INR 0.98 02/09/25 09:15
APTT 31.4 Sec (23.4-35.0) 02/09/25 09:15
eGFR > 60.00 02/11/25 04:05
Physical Exam
HEENT: Moist Mucous Membranes; No Jaundice
Pulmonary: Other (unlabored)
GI: Soft
Extremities: Pulses Present
Orders
Orders
Orders From Last 24 Hours
02/11/25 04:06
QuantiFERON-TB Gold Plus [S] IN AM
--- NOTE | 2025-02-11 09:32 | W.PN.ID1 ---
Addendum entered and electronically signed by Luly Mcgill MD 02/11/25 10:49:
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 She is on the correct treatment.
Original Note:
Date of Service
Date of Service: February 11, 2025
Today's Communication
- Continue empiric doxycycline 100mg po bid (d5 of 14) through 02/20/25
- Trend CBC/diff, CMP in 1 to 2 weeks
- I will call her when pending labs resulted
- Can follow-up with PCP
Assessment / Plan
# Fever- resolved
# Acute leukopenia resolved
# Acute thrombocytopenia, continues to improve
# Acute anemia stable
# bradycardia (no heart block on EKG)
# Elevated LFT's, table
# Suspect tick-borne illness (Anaplasma)
- COVID/Flu neg
- blood cx's x2 neg to date
- CXR - no pneumonia
- Babesia smear x 2 neg.
- Lyme presumably +, reflex WB pending
- anaplasma/ehrlichia PCR pending
- Continue empiric doxycycline 100mg po bid (d5 of 14) through 02/20/25
- Trend CBC/diff, CMP in 1 to 2 weeks
- Discussed importance of insect prevention summer to fall every year
- I will call her when pending labs resulted
- Can follow-up with PCP
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
- Offered her latent TB tx, she declined
Chief Complaint
-: Other (cytopenia)
Subjective / Review of Systems
Feels much improved. No complaints.
Vital Signs / Physical Exam
Vital Signs
Vital Signs
Temp Pulse Resp BP Pulse Ox
97.7 F 45 16 106/67 93
02/11/25 07:05 02/11/25 05:00 02/10/25 17:23 02/11/25 04:00 02/11/25 05:00
Physical Exam
Constitutional: No Acute Distress and Comfortable
Cardiovascular: Regular Rate and S1/S2
Pulmonary: Clear
Gastrointestinal: Soft, Non Tender, Non Distended and Normal Bowel Sounds
Extremities: Negative Edema
Neurological: AO x 3
Objective Data
Lab Data
Lab Results
02/11/25 04:06
02/11/25 04:05
PT 13.3 Sec (11.4-14.6) 02/09/25 09:15
INR 0.98 02/09/25 09:15
APTT 31.4 Sec (23.4-35.0) 02/09/25 09:15
Estimated Creat Clear 61 ml/min 02/11/25 04:05
Total Bilirubin 0.3 mg/dl (0.2-1.3) 02/10/25 04:03
AST 67 U/L (14-36) H 02/10/25 04:03
ALT 55 U/L (0-35) H 02/10/25 04:03
Alkaline Phosphatase 49 U/L (38-126) 02/10/25 04:03
Most recent labs reviewed.
Micro Results:
02/07/25 22:09 Blood Culture - Preliminary
Blood/Venous No Growth in 72 hours- Final report to follow
02/07/25 22:16 Urine Culture - Final
Urine NO GROWTH
02/08/25 08:41 Blood Parasites Smear - Final
Blood/Venous
02/07/25 18:19 Blood Parasites Smear - Final
Blood/Venous
02/07/25 14:04 Influenza Types A & B (DC) - Final
Nasal Swab Negative for Influenza A & B, NAAT
Negative results must be combined with clinical observations
and patient history.
Nucleic Acid Amplification test (NAAT)performed on the
[employer] platform.
02/07/25 CXR: Findings suggesting small bilateral pleural effusions. Lungs appear otherwise clear.
Care Review
Plan reviewed with: Physician (Dr. Burt)
--- NOTE | 2025-02-11 10:31 | PTCARENOTE ---
A. Phagocytopjilum is Detected. Notified hospitalist and infectious disease.
--- NOTE | 2025-02-11 12:39 | W.DCSUMMARY ---
Discharge Summary
Discharge Data
Date of Admission: 02/07/25
Date of Discharge: 02/11/25
Total time spent discharging patient (in min): 45
-
Pending Results: No
Hospital Course
Ms. Calderon is a 79-year-old female with a medical history of hypothyroidism who presented with malaise, body aches, and nausea. She was found to have thrombocytopenia and hyponatremia. She later developed pancytopenia and had intermittent fevers.
Respiratory panel was negative for influenza and COVID. She was started on antibiotics with ceftriaxone and doxycycline. She also developed sinus bradycardia with heart rate persistently in the 40s-50s. Imaging showed no evidence of pneumonia.
Tickborne illness was suspected and she was continued on doxycycline, ceftriaxone was discontinued. Peripheral blood smears were negative for Babesia x 2. Her fevers resolved and pancytopenia improved. Her serologies returned positive for
Anaplasma, which is adequately treated with doxycycline. She will continue on doxycycline for total of 14 days. Her hyponatremia resolved. She had a mild transaminitis which remained stable. She will need to obtain lab work after completing
antibiotic treatment to monitor for resolution of her cytopenia and transaminitis. She was evaluated by cardiology due to her sinus bradycardia. There was no EKG evidence of heart block. Echocardiogram showed normal structure and function. A
heart monitor will be arranged for her at time of hospital discharge and she will follow-up with cardiology in the outpatient setting. At time of hospital discharge she was medically stable.
General: No Apparent Distress and Comfortable
HEENT: Moist mucous membranes and Atraumatic
Respiratory: Clear but limited at bases
Cardiac: S1/S2 and Regular Rhythm, bradycardia with heart rate around 70
GI: Soft, Non Tender and Non Distended
Genito-urinary: No Merritt
Musculoskeletal: No Clubbing, No Cyanosis and No Edema
Skin: No Jaundice, no bruising
Neuro: AO x 3 and Nonfocal/grossly intact
Psych: Calm and Intact Judgment/Insight
Discharge Plan
-
Patient Disposition: Home (Routine Discharge)
Discharge Diagnosis/Procedures: Anaplasmosis
Diet: Regular
Activity: No restrictions
Blood Work: CBC and CMP in 2 weeks to monitor cytopenia and abnormal upper function test
Others Tests: 7 day Cardiac Bardy monitor
Activity Restrictions/Additional Instructions:
Ms. Calderon is a 79-year-old female with a medical history of hypothyroidism who presented with malaise, body aches, and nausea. She was found to have thrombocytopenia and hyponatremia. She later developed pancytopenia and had intermittent fevers.
Respiratory panel was negative for influenza and COVID. She was started on antibiotics with ceftriaxone and doxycycline. She also developed sinus bradycardia with heart rate persistently in the 40s-50s. Imaging showed no evidence of pneumonia.
Tickborne illness was suspected and she was continued on doxycycline, ceftriaxone was discontinued. Peripheral blood smears were negative for Babesia x 2. Her fevers resolved and pancytopenia improved. Her serologies returned positive for
Anaplasma, which is adequately treated with doxycycline. She will continue on doxycycline for total of 14 days. Her hyponatremia resolved. She had a mild transaminitis which remained stable. She will need to obtain lab work after completing
antibiotic treatment to monitor for resolution of her cytopenia and transaminitis. She was evaluated by cardiology due to her sinus bradycardia. There was no EKG evidence of heart block. Echocardiogram showed normal structure and function. A
heart monitor will be arranged for her at time of hospital discharge and she will follow-up with cardiology in the outpatient setting. At time of hospital discharge she was medically stable.
Referrals:
Kalyani Don PA-C [Specified Professional Personl, Cardiology] - 03/18/25 7:40 am
Referral Note: You have a cardiology follow-up appointment at the [place] office. Please call with questions
Denver Hobson MD [Family Provider, Internal Medicine]
Prescriptions:
New
doxycycline hyclate 100 mg Capsule
100 mg PO Q12 10 Days Qty: 20 0RF
Continued
levothyroxine [Synthroid] 50 mcg Tablet
50 mcg PO DAILY
Discontinued
oseltamivir [Tamiflu] 75 mg Capsule
75 mg PO BID
Rx Instructions:
for 5 days starting 02/06/25
Discharge Orders:
Discharge Patient (As Directed); Ordered 02/11/25
Ordered By: Dante Burt
Discharge Date and Time
Print Language: NIGERIAN
--- NOTE | 2025-02-11 14:51 | W.PN.CARDCBS ---
Addendum entered and electronically signed by Tj Howell MD 02/11/25 15:53:
I saw and examined the patient.
The Utility Gelatin Maker's note was reviewed and I agree with the note.
Comment: Briefly, 79-year-old woman presenting with SIRS found to have anaplasmosis. While here she was identified as having asymptomatic bradycardia for which cardiology is consulted.
Telemetry reviewed, patient with sinus bradycardia and heart rates in the 40s overnight; however throughout the day today heart rate has been in the 70s and 80s.
No significant pauses or high-grade AV block seen
Patient seems to be asymptomatic with this therefore no clear indication for permanent pacemaker at this time
Plan for 1 week global lead at time of discharge and we will arrange for outpatient follow-up
Stable for discharge from my perspective
Original Note:
Today's Communication / Plan
-
Continue treatment of anaplasmosis
With sinus bradycardia, however no pauses or AV block. No indication for pacemaker
Echocardiogram with preserved EF
1 week Bardy monitor upon discharge
Outpatient cardiac follow-up arranged
for discharge today
Impression / Plan
-
Impression:
Suspected acute infectious illness
Possible influenza, being screened for tickborne diseases, etc., currently on ceftriaxone and doxycycline
Hyponatremia
Leukopenia
Severe thrombocytopenia
Mildly elevated CPK
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
Possible mild mitral valve prolapse/MVP
ECHO 02/10/25: EF 64%, no regional wall motion abnormalities noted, mild AR
Plan:
-she tested positive for anaplasmosis. continue treatment per ID
-on review of tele with some sinus kenzie however no lightheadedness or dizziness and no evidence of pauses or AV block.
-Echo with results as above, EF preserved, no significant valvular disease
-7-day Bardy CAM global lead has been placed
-OP cardiac follow up arranged
-for DC today
Progress Note - Fertilizer Supervisor
Subjective
Date of Service: February 11, 2025
Denies lightheadedness or dizziness. Feeling much improved from admission
Objective
Labs:
02/11/25 04:06
02/11/25 04:05
Labs
Hgb 9.8 g/dL (12.0-16.0) L 02/11/25 04:06
Hct 27.6 % (37.0-47.0) L 02/11/25 04:06
Plt Count 63 10^3/uL (130-400) L D 02/11/25 04:06
PT 13.3 Sec (11.4-14.6) 02/09/25 09:15
INR 0.98 02/09/25 09:15
APTT 31.4 Sec (23.4-35.0) 02/09/25 09:15
Sodium 142 mmol/L (135-145) 02/11/25 04:05
Potassium 3.5 mmol/L (3.5-5.1) 02/11/25 04:05
BUN 9 mg/dl (7-17) 02/11/25 04:05
Creatinine 0.5 mg/dL (0.6-1.0) L 02/11/25 04:05
Glucose 91 mg/dl (70-99) 02/11/25 04:05
Troponins
02/09/25
02:50
Troponin I < 0.012
Vital Signs and I&O:
Vital Signs
Temp Pulse Resp BP Pulse Ox
97.7 F 69 16 109/64 96
02/11/25 11:00 02/11/25 14:00 02/10/25 17:23 02/11/25 14:00 02/11/25 13:00
Vital Signs
Temp Pulse Resp BP Pulse Ox
97.7 F 69 16 109/64 96
02/11/25 11:00 02/11/25 14:00 02/10/25 17:23 02/11/25 14:00 02/11/25 13:00
Intake & Output
02/09/25 02/10/25 02/11/25 02/12/25
07:59 07:59 07:59 07:59
Intake Total 1860 / 1860 1080 / 1080 120 / 120
Output Total 900 / 900
Balance 960 / 960 1080 / 1080 120 / 120
Physical Exam
Physical Exam
GEN: No distress, awake, alert, oriented x3. Sitting in chair
HEENT: supple, anicteric, mmm, EOMI
LUNGS: CTA bilaterally, no wheezes/rales
CV: Reg, S1/S2, no murmur
ABD: soft, BS+, NT/ND
EXT: No cyanosis, clubbing, edema
NEURO: Gross non-focal
SKIN: Warm, pink, dry. No rash
--- NOTE | 2025-02-11 15:04 | PN.CDI ---
CDI
- -
CDI:
Physician Documentation Request
Admit Date: 02/07/25 15:54
Dear Doctor Javed
Patient presented to ED with complaints of severe fatigue, poor appetite, myalgias and nausea. Patient was negative for flu and COVID during hospitalization. Pt was found to be positive for Anaplasma and treated with doxycycline.
02/07 WBC was 2.4 T max on 02/07 102.8 presenting heart rate 108 presenting respiratory rate 16
02/08 nursing notes 16:52 'Pts bp 78/50. Denies symptoms of dizziness or blurred vision. 500ml nss fluid bolus and 5mg of midodrine given. Rechecked bp 99/60'
21:30 'pt's BP at 19:28 was 86/60, HR 62. Manual BP at 20:44 was 78/44....a 500mL NS bolus and 5mg PO midodrine. Midodrine given, bolus infusing,'
02/09 02:55 'Pt's BP 80/46... Manual BP 72/44...Orders received for 5mg PO midodrine, 500mL NS bolus, and transfer to IMU'
Per SEP pt also received 1000 ml bolus on 02/07
Please clarify which of the following most accurately describes the status of the patient's infection:
Sepsis
- Systemic manifestations of infection, with 2 or more SIRS criteria which include:
- Fever >100.9 degrees F or hypothermia < 96.8 degrees F
- Leukocytosis - WBC > 12,000 or leukopenia - WBC < 4,000 or > 10% bands
- Tachycardia > 90 beats per minute
- Tachypnea - RR > 20 breaths per minute or PaCO2 , 32mmHg
Source: [employer] Manual 2012
Septic Shock
- Severe sepsis associated with circulatory failure, evidenced by hypotension and hypoperfusion
Anaplasma only
Other
Use of terms such as suspected, likely, concern for, or probable (associated with a specific diagnosis that is being evaluated, monitored, or treated as if it exists) are acceptable and can be coded in the inpatient setting, when documented at the
time of discharge.
Thank you,
Mitzi Smith RN, BSN
CDI Specialist
tiger text
Please use your independent medical judgment in providing your response.
--- NOTE | 2025-02-11 16:50 | PTCARENOTE ---
Patient was discharged with cardiac halter monitor on.
--- NOTE | 2025-02-11 17:01 | CM ---
Patient with Dx Anaplasmosis. Room air. Per nurse, activity by self, halter monitor placed prior to d/c.
Met with patient who was preparing for discharge.
The patient says she feels ready for discharge home today. IMM completed.
A family member will provide transport home.
No CM d/c needs identified.
Plan home today.
[2025-02-12 05:43] LABS: Parvo B19 Ab, IgM 0.44 IV (<=0.89); Parvo Virus B19 Ab, IgG 1.52 IV (<=0.90)
[2025-02-12 05:48] LABS: EBV-EA (D) Ab IgG 17.9 U/mL (0.0-10.9); EBV-NA IgG 51.1 U/mL (0.0-21.9); EBV-VCA IgG Antibodies 159.0 U/mL (0.0-21.9); EBV-VCA IgM Antibodies 20.3 U/mL (0.0-43.9)
[2025-02-12 16:05] LABS: Source Blood
[2025-02-13 15:24] LABS: Lyme Ab Western Blot IgG Negative (Negative); Lyme Ab Western Blot IgM Negative (Negative)
== END 2025-02-11 16:44 | disposition home or self-care (01) | DRG 872 ==
LOC: IMU 15:54
PROVIDERS: Nurse Practitioner Family; Nurse Practitioner Gerontology; ADMITTING PHYSICIAN Internal Medicine; ATTENDING PHYSICIAN Internal Medicine; CONSULT PHYSICIAN Internal Medicine; CONSULT PHYSICIAN Internal Medicine Cardiovascular Disease; CONSULT PHYSICIAN Internal Medicine Infectious Disease; EMERGENCY PHYSICIAN Emergency Medicine; FAMILY PHYSICIAN Internal Medicine; OTHER PHYSICIAN Internal Medicine Hematology & Oncology
DX: A41.89 Other specified sepsis (principal); A79.82 Anaplasmosis [A. phagocytophilum]; D61.818 Other pancytopenia; E87.1 Hypo-osmolality and hyponatremia; I45.2 Bifascicular block; M62.82 Rhabdomyolysis; Z11.52 Encounter for screening for COVID-19; Z87.891 Personal history of nicotine dependence; E03.9 Hypothyroidism, unspecified; E83.51 Hypocalcemia; G89.29 Other chronic pain; K76.89 Other specified diseases of liver; Z79.890 Hormone replacement therapy; Z85.831 Personal history of malignant neoplasm of soft tissue; Z92.21 Personal history of antineoplastic chemotherapy
CPT/HCPCS: 71046; 76705; 80048; 80053; 80076; 81003; 81015; 82248; 82306; 82330; 82533; 82550; 83010; 83615; 83735; 83930; 83935; 84300; 84443; 84484; 85025; 85027; 85045; 85384; 85610; 85730; 86308; 86480; 86617; 86618; 86644; 86645; 86663; 86664; 86665; 86704; 86706; 86708; 86747; 86803; 87015; 87040; 87086; 87207; 87340; 87468; 87484; 87502; 87798; 87811; 93005; 93306; 96361; 96374; 96375; 99284

== ENCOUNTER → 2025-02-25 14:41 | Outpatient (REF) | payer MEDICARE, OTHER, SELFPAY ==
[2025-02-25 16:43] LABS: Hematocrit 33.8 % (37.0-47.0); Hemoglobin 11.1 g/dL (12.0-16.0); Mean Corp Hgb Conc. 32.8 g/dL (33.0-37.0); Mean Corpuscular Volume 91.1 fL (81.0-99.0); Nucleated Red Blood Cells % 0 %; Platelet Count 188 10^3/uL (130-400); Red Cell Dist. Width 14.9 % (11.5-14.5)
[2025-02-25 16:45] LABS: ALT (SGPT) 45 U/L (0-35); AST (SGOT) 30 U/L (14-36); Albumin 4.3 g/dl (3.5-5.0); Alkaline Phosphatase 57 U/L (38-126); Blood Urea Nitrogen 19 mg/dl (7-17); Calcium 9.3 mg/dl (8.4-10.2); Carbon Dioxide 28 mmol/L (22-30); Chloride 105 mmol/L (98-107); Glucose 94 mg/dl (70-99); Potassium 4.1 mmol/L (3.5-5.1); Sodium 138 mmol/L (135-145); Total Protein 7.0 g/dl (6.3-8.2); eGFR > 60.00
== END ==
LOC: REG 14:41
PROVIDERS: ATTENDING PHYSICIAN Internal Medicine
DX: A77.49 Other ehrlichiosis (principal)
CPT/HCPCS: 36415; 80053; 85025

== ENCOUNTER → 2025-04-09 15:14 | Outpatient (REF) | payer MEDICARE, OTHER, SELFPAY ==
[2025-04-09 16:21] LABS: Hematocrit 37.0 % (37.0-47.0); Hemoglobin 12.4 g/dL (12.0-16.0); Mean Corp Hgb Conc. 33.5 g/dL (33.0-37.0); Mean Corpuscular Volume 90.9 fL (81.0-99.0); Nucleated Red Blood Cells % 0 %; Platelet Count 194 10^3/uL (130-400); Red Cell Dist. Width 14.5 % (11.5-14.5)
[2025-04-09 16:33] LABS: ALT (SGPT) 31 U/L (0-35); AST (SGOT) 32 U/L (14-36); Albumin 4.5 g/dl (3.5-5.0); Alkaline Phosphatase 57 U/L (38-126); Total Protein 7.4 g/dl (6.3-8.2)
== END ==
LOC: REG 15:14
PROVIDERS: ATTENDING PHYSICIAN Internal Medicine
DX: D61.818 Other pancytopenia (principal); R79.89 Other specified abnormal findings of blood chemistry
CPT/HCPCS: 36415; 80076; 85025

== ENCOUNTER → 2025-05-05 15:00 | Outpatient (REF) | payer MEDICARE, OTHER, SELFPAY | LOC: WDC 15:00 | PROVIDERS: ATTENDING PHYSICIAN Obstetrics & Gynecology Gynecology; FAMILY PHYSICIAN Internal Medicine | DX: Z12.31 Encounter for screening mammogram for malignant neoplasm of breast (principal) | CPT/HCPCS: 77063; 77067 ==

== ENCOUNTER → 2025-06-18 13:46 | Outpatient (REF) | payer MEDICARE, OTHER, SELFPAY | LOC: RAD 13:46 | PROVIDERS: ATTENDING PHYSICIAN Internal Medicine; FAMILY PHYSICIAN Internal Medicine | DX: M81.0 Age-related osteoporosis without current pathological fracture (principal) | CPT/HCPCS: 77080 ==